=== PATIENT | female | born 1930 ===

== ENCOUNTER 2018-07-14 13:31 | Inpatient (IN) | payer MEDICARE, MEDICAID ==
[2018-07-14 13:58] VITALS: BMI 27.3
[2018-07-14] MEDS ORDERED: oxyCODONE 5 mg Immediate Release Tab PO STA (14:13)
--- NOTE | 2018-07-14 14:39 | ED PDOC ---
Arrival/HPI - General Chief Complaint: Lower Extremity Problem/Injury Time Seen by Provider: 07/14/18 14:00 Historian: Patient - History of Present Illness Narrative History of Present Illness (Text): 07/14/18 14:22 A 88 year old female, whose past medical history includes diabetes, presents to the emergency department complaining of lower leg bilateral pain for the past 3 days. As per daughter patient sustained fall while walking on stairs, she fell 3 weeks ago and sustained minor injury to her knees. Patient denies any other complaints at this time including no chest pain or dyspnea. States she took Tylenol for the leg pain but had no relief. electrical and radio mechanic used, daughter, with patient's permission, official slovenian intepreter offered. No PMD. 07/15/18 11:12 Past Medical History - Provider Review Nursing Documentation Reviewed: Yes - Infectious Disease Hx of Infectious Diseases: None - Tetanus Immunization Tetanus Immunization: Unknown - Cardiac Hx Congestive Heart Failure: Yes Hx Pacemaker: No - Pulmonary Hx Respiratory Disorders: Yes Hx Asthma: Yes Hx Chronic Obstructive Pulmonary Disease (COPD): Yes Hx Emphysema: Yes Hx Pneumonia: Yes - Neurological Hx Paralysis: No - HEENT Hx HEENT Disorder: Yes Hx Cataracts: Yes Hx Deafness: Yes ([place]) - Renal Hx Renal Disorder: No - Endocrine/Metabolic Hx Endocrine Disorders: Yes Hx Diabetes Mellitus Type 1: Yes - Hematological/Oncological Hx Blood Transfusions: No Hx Blood Transfusion Reaction: No - Integumentary Hx Dermatological Disorder: Yes (RED RASH TO MID CHEST APPLIED TIGER BALM) - Musculoskeletal/Rheumatological Hx Musculoskeletal Disorders: Yes Hx Falls: Yes Hx Fractures: Yes (RIB FRACTURE) - Gastrointestinal Hx Gastrointestinal Disorders: Yes Hx Gall Bladder Disease: Yes (CHOLECYSTECTOMY) Other/Comment: MELENA - Genitourinary/Gynecological Hx Genitourinary Disorders: No - Psychiatric Hx Psychophysiologic Disorder: Yes Hx Depression: Yes Hx Substance Use: No - Surgical History Hx Cholecystectomy: Yes Hx Coronary Stent: Yes - Anesthesia Hx Anesthesia: Yes Hx Anesthesia Reactions: No Hx Malignant Hyperthermia: No - Suicidal Assessment Feels Threatened In Home Enviroment: No Family/Social History - Physician Review Nursing Documentation Reviewed: Yes Family/Social History: No Known Family HX Smoking Status: Never Smoked Hx Alcohol Use: No Hx Substance Use: No Hx Substance Use Treatment: No Allergies/Home Meds Allergies/Adverse Reactions: Allergies losartan Allergy (Verified 07/14/18 13:54) COUGH Home Medications: Home Meds Medication Instructions Recorded Confirmed ALPRAZolam [Xanax] 0.25 mg PO BID PRN 05/09/17 05/25/17 Aspirin [Adult Low Dose Aspirin EC] 81 mg PO DAILY 05/09/17 07/14/18 Clopidogrel [Plavix] 75 mg PO DAILY 05/09/17 07/14/18 Furosemide [Lasix] 20 mg PO BID 05/09/17 07/14/18 Montelukast [Singulair] 10 mg PO DAILY 05/09/17 07/14/18 RX: Metoprolol Tartrate 25 mg PO BID 05/09/17 07/14/18 Albuterol HFA [Ventolin HFA 90 2 puff IH [id number] 05/25/17 mcg/actuation (8 g)] Albuterol/Ipratropium [Duoneb 3 1 puff INH QID PRN 05/25/17 07/14/18 MG/3 Ml-0.5 MG/3 Ml 3 Ml] Famotidine [Pepcid] 20 mg PO DAILY 05/25/17 07/14/18 Fluticasone/Salmeterol 500/50 1 puff INH BID 05/25/17 07/14/18 [Advair Diskus 500/50] Insulin Degludec [Tresiba 0 units SQ DAILY 05/25/17 07/14/18 Flextouch U-100] Isosorbide Mononitrate [Isosorbide 30 mg PO DAILY 05/25/17 07/14/18 Mononitrate ER] RX: Fenofibrate [Tricor] 48 mg PO DAILY 05/25/17 07/14/18 SITagliptin [Januvia] 100 mg PO DAILY 05/25/17 07/14/18 Tiotropium [place] [Spiriva 2 puff INH DAILY 05/25/17 07/14/18 Respimat] Review of Systems - Physician Review All systems were reviewed & negative as marked: Yes - Review of Systems Constitutional: absent: Fevers Musculoskeletal: Back Pain (lowre back pain, though not experiening it at this time according to patient.), Other (bilateral leg pain) Physical Exam - Physical Exam Narrative Physical Exam (Text): Gen: VS reviewed, alert, well developed, well nourished, nontoxic, mild distress Eye: EOMI, PERRL Neck: no JVD, supple, no adenopathy CV: regular rate, regular rhythm, no rubs,no murmur, S1, S2 Pulm: no distress, clear to auscultation, no wheeze, no rhonchi, breath sounds equal, no rales Abd: soft, nontender, no guarding, no rebound, no rigidity Ext: no edema, bilateral lower legs varicosis veins, unusual pain to superficial touch Skin: good color, no rash, no cyanosis Psych: responds appropriately to questions, normal affect Neuro: oriented x3, CN2-12 intact grossly, motor intact, sensation intact Vital Signs Reviewed: Yes Vital Signs Temp Pulse Resp BP Pulse Ox 07/14/18 13:31 98 F 75 18 145/85 98 Temperature: Afebrile Blood Pressure: Normal Pulse: Regular Respiratory Rate: Normal Appearance: Positive for: Well-Appearing, Non-Toxic, Comfortable Pain Distress: None Mental Status: Positive for: Alert and Oriented X 3 Medical Decision Making ED Course and Treatment: 07/14/18 14:25 Impression: 88 year old female with lower leg bilateral pain. Plan: -- Lumbar Spinal CT -- Labs -- Lower Extremity Ultrasound -- Percocet -- Reassess and disposition Progress Notes: 07/14/18 16:51 Ultrasound reveals patient has bilateral DVTs. 07/14/18 17:13 patient seen for bilaterally lower leg pain with difficulty ambulating. patient does not have cardiopulmonary symptoms during Emergency department course. patient found to have multiple vessel lower extremity DVT. patient at this time is an ambulatory risk being that she had a mechanical fall within this same time frame. i feel that empirically started this patient on noac therapy for lower extremity dvt could be potentially harmful to the patient with the risk for head injury with subsequent falls. patient would benefit from physical therapy. has bled score =2. i feel it is still prudent to empirically anticoagulate being that that the patient has symptomatic DVT in bilateral lower extremities. admit accepted by dr. shelton. 07/14/18 17:35 - Lab Interpretations I have reviewed the lab results: Yes - RAD Interpretation Narrative RAD Interpretations (Text): 07/14/2018 15:[address] Findings: Multilevel degenerative changes including anterior osteophyte formation. Osseous demineralization. Vertebral body heights appear within normal limits. Alignment appears satisfactory. No acute fracture or subluxation identified. Paraspinal soft tissues appear unremarkable. Limited visualization of the intra- abdominal and intrapelvic contents appear unremarkable. Impression: No acute fracture or subluxation identified. Osseous demineralization. Degenerative changes. Suggest further evaluation with MRI if indicated. Dictator: Tayla Moncada MD Radiology Orders: 07/14/18 14:12 LUMBAR SPINE W/O CONTRAST [CT] Stat 07/14/18 14:13 DUPLEX LOWER EXTRM VEIN BILAT [US] Stat - Medication Orders Current Medication Orders: Discontinued Medications Oxycodone HCl (Oxycodone Immediate Release Tab) 2.5 mg PO STAT STA Stop: 07/14/18 14:14 - Scribe Statement The provider has reviewed the documentation as recorded by the Farzaneh Grider Provider Scribe Attestation: All medical record entries made by the Scribe were at my direction and personally dictated by me. I have reviewed the chart and agree that the record accurately reflects my personal performance of the history, physical exam, medical decision making, and the department course for this patient. I have also personally directed, reviewed, and agree with the discharge instructions and disposition. Disposition/Present on Arrival - Present on Arrival Any Indicators Present on Arrival: No History of DVT/PE: No History of Uncontrolled Diabetes: Yes Urinary Catheter: No History of Decub. Ulcer: No History Surgical Site Infection Following: None - Disposition Have Diagnosis and Disposition been Completed?: Yes Diagnosis: DVT of lower extremity, bilateral Disposition: HOSPITALIZED Disposition Time: 17:23 Patient Plan: Admission Patient Problems: Current Active Problems Problem Status Onset DVT of lower extremity, bilateral Acute Condition: STABLE
[2018-07-14 15:34] LABS: BASO # 0.02 K/mm3 (0.0-2.0); BASO % 0.2 % (0.0-3.0); EOS # 0.1 (0.0-0.7); EOS % 1.1 % (1.5-5.0); GRAN # 4.54 (1.4-6.5); GRAN % 55.4 % (50.0-68.0); LYMPH # 2.9 (1.2-3.4); LYMPH % 35.7 % (22.0-35.0); MEAN CELL VOLUME 78.5 fl (80.0-105.0); MEAN CORPUSCULAR HEMOGLOBIN 25.9 pg (25.0-35.0); MEAN PLATELET VOLUME 10.4 fl (7.0-11.0); MONO # 0.6 (0.1-0.6); MONO % 7.6 % (1.0-6.0); RBC 5.4 10^6/uL (3.5-6.1); RED CELL DISTRIBUTION WIDTH 14.3 % (11.5-14.5); WHITE BLOOD COUNT 8.2 10^3/uL (4.5-11.0)
[2018-07-14 15:58] LABS: BLOOD UREA NITROGEN 16 mg/dL (7-21); CALCIUM 9.5 mg/dL (8.4-10.5); GFR NON-AFRICAN AMERICAN > 60
--- NOTE | 2018-07-14 16:00 | CT ---
Date of service: 07/14/2018 CT lumbar spine without IV contrast Indication: pain, stenosis Comparison: None available Technique: Noncontrast axial images of the lumbar spine were provided. Sagittal and coronal reformatted images were generated and reviewed. This CT exam was performed using 1 or more of the following dose reduction techniques: Automated exposure control, adjustment of the MAA and/or kV according to patient size, and/or use of iterative reconstruction technique. Total exam DLP: 1422.35 MGy-cm Findings: Multilevel degenerative changes including anterior osteophyte formation. Osseous demineralization. Vertebral body heights appear within normal limits. Alignment appears satisfactory. No acute fracture or subluxation identified. Paraspinal soft tissues appear unremarkable. Limited visualization of the intra-abdominal and intrapelvic contents appear unremarkable. Impression: No acute fracture or subluxation identified. Osseous demineralization. Degenerative changes. Suggest further evaluation with MRI if indicated.
[2018-07-14] MEDS ORDERED: Oxycodone/Acetaminophen 5/325 mg Tab PO STA (16:59)
[2018-07-14 17:17] LABS: INR 1.05; PARTIAL THROMBOPLASTIN TIME 29.4 Seconds (25.1-36.5)
[2018-07-14] MEDS ORDERED: Heparin25000 units/250ml 1/2NS 25,000 UNITS/250 ML BAG IV PRN (17:30)
[2018-07-14 18:11] LABS: TROPONIN I 0.04 ng/mL
--- NOTE | 2018-07-14 19:48 | CP.PCM.HP ---
<Vanessa Chavez - Last Filed: 07/14/18 20:22> History of Present Illness - History of Present Illness History of Present Illness: Pt is a 88 year old female with pmhx of DM, HTN, CAD, HLD and asthma who presents to the ED for lower leg bilateral pain for the past 3 days. Patient is translated by a sales project administrator ID# [id number]. Pt reports that she fell 2 weeks ago but didnt go to a hospital for it because it didnt hurt her too badly. She states that recently over the past 3 days the pain has been progressively getting worse and is now rated an 8/10 in both legs though the L hurts worse than the R. Then she states that over the next 2 weeks she kept going to a senior center where they would help her exercise but over the past 2 weeks she would do all the activities and exercises while sitting. Pt denies ever having an episode like this in the past. She denies recent travel. Pt is currently denying fevers, chills, headache, weakness, SOB, SOB w exertion, cough, Chest pain, pleuritic chest pain, palpitations, abd pain, n/v, c/d, dysuria, hematuria, numbness, tingling or weakness in any extremity. Pt does admit to calf pain b/l. Pmhx: DM, HTN, CAD, HLD and asthma Pshx: Denies All: Losartan - cough Fam: Non-contributory Soc: Denies smoking, denies tobacco use, and denies any illicit drug use PMD: Gerald Wrapper Dipper: Amalia Present on Admission - Present on Admission Any Indicators Present on Admission: No Past Patient History - Infectious Disease Hx of Infectious Diseases: None - Tetanus Immunizations Tetanus Immunization: Unknown - Past Social History Smoking Status: Never Smoked - CARDIAC Hx Congestive Heart Failure: Yes Hx Pacemaker: No - PULMONARY Hx Respiratory Disorders: Yes Hx Asthma: Yes Hx Chronic Obstructive Pulmonary Disease (COPD): Yes Hx Emphysema: Yes Hx Pneumonia: Yes - NEUROLOGICAL Hx Paralysis: No - HEENT Hx HEENT Problems: Yes Hx Cataracts: Yes Hx Deafness: Yes ([place]) - RENAL Hx Chronic Kidney Disease: No - ENDOCRINE/METABOLIC Hx Endocrine Disorders: Yes Hx Diabetes Mellitus Type 1: Yes - HEMATOLOGICAL/ONCOLOGICAL Hx Blood Transfusions: No Hx Blood Transfusion Reaction: No - INTEGUMENTARY Hx Dermatological Problems: Yes (RED RASH TO MID CHEST APPLIED TIGER BALM) - MUSCULOSKELETAL/RHEUMATOLOGICAL Hx Musculoskeletal Disorders: Yes Hx Falls: Yes Hx Fractures: Yes (RIB FRACTURE) - GASTROINTESTINAL Hx Gastrointestinal Disorders: Yes Hx Gall Bladder Disease: Yes (CHOLECYSTECTOMY) Other/Comment: MELE[place] - GENITOURINARY/GYNECOLOGICAL Hx Genitourinary Disorders: No - PSYCHIATRIC Hx Psychophysiologic Disorder: Yes Hx Depression: Yes Hx Substance Use: No - SURGICAL HISTORY Hx Cholecystectomy: Yes Hx Coronary Stent: Yes - ANESTHESIA Hx Anesthesia: Yes Hx Anesthesia Reactions: No Hx Malignant Hyperthermia: No Meds Allergies/Adverse Reactions: Allergies Allergy/AdvReac Type Severity Reaction Status Date / Time losartan Allergy COUGH Verified 07/14/18 13:54 Physical Exam - Constitutional Appears: Well, Non-toxic, No Acute Distress - Head Exam Head Exam: ATRAUMATIC, NORMAL INSPECTION, NORMOCEPHALIC - Eye Exam Eye Exam: EOMI, Normal appearance, PERRL - Respiratory Exam Respiratory Exam: Clear to Auscultation Bilateral, NORMAL BREATHING PATTERN. absent: Accessory Muscle Use, Decreased Breath Sounds, Rales, Rhonchi, Wheezes, Respiratory Distress, Stridor - Cardiovascular Exam Cardiovascular Exam: RRR, +S1, +S2. absent: Gallop, Rubs, Systolic Murmur - GI/Abdominal Exam GI & Abdominal Exam: Normal Bowel Sounds, Soft. absent: Firm, Hernia, Tenderness - Extremities Exam Extremities exam: Positive for: calf tenderness, pedal edema (present b/l), tenderness, pedal pulses present. Negative for: joint swelling - Back Exam Back exam: NORMAL INSPECTION. absent: CVA tenderness (L), CVA tenderness (R) - Neurological Exam Neurological exam: Alert, Oriented x3 - Psychiatric Exam Psychiatric exam: Normal Affect, Normal Mood - Skin Skin Exam: Dry, Intact, Normal Color, Warm Results - Vital Signs Recent Vital Signs: Last Vital Signs Temp 98 F 07/14/18 17:10 Pulse 72 07/14/18 17:10 Resp 18 07/14/18 17:10 BP 124/70 07/14/18 17:10 Pulse Ox 98 07/14/18 17:10 - Labs Result Diagrams: 07/14/18 15:00 07/14/18 15:00 Labs: Laboratory Results - last 24 hr 07/14/18 07/14/18 07/14/18 15:00 15:00 17:04 WBC 8.2 RBC 5.40 Hgb 14.0 Hct 42.4 MCV 78.5 L MCH 25.9 MCHC 33.0 RDW 14.3 Plt Count 238 MPV 10.4 Gran % 55.4 Lymph % (Auto) 35.7 H Grand % (Auto) 7.6 H Eos % (Auto) 1.1 L Baso % (Auto) 0.2 Gran # 4.54 Lymph # (Auto) 2.9 Grand # (Auto) 0.6 Eos # (Auto) 0.1 Baso # (Auto) 0.02 PT 12.0 INR 1.05 APTT 29.4 Sodium 138 Potassium 4.6 Chloride 104 Carbon Dioxide 25 Anion Gap 13 BUN 16 Creatinine 0.6 L Est GFR ( Amer) > 60 Est GFR (Non-Af Amer) > 60 Random Glucose 112 H Calcium 9.5 Phosphorus Magnesium Troponin I 07/14/18 17:30 WBC RBC Hgb Hct MCV MCH MCHC RDW Plt Count MPV Gran % Lymph % (Auto) Grand % (Auto) Eos % (Auto) Baso % (Auto) Gran # Lymph # (Auto) Grand # (Auto) Eos # (Auto) Baso # (Auto) PT INR APTT Sodium Potassium Chloride Carbon Dioxide Anion Gap BUN Creatinine Est GFR ( Amer) Est GFR (Non-Af Amer) Random Glucose Calcium Phosphorus 4.1 Magnesium 1.9 Troponin I 0.04 Assessment & Plan - Assessment and Plan (Free Text) Assessment: Pt is a 88 year old female with pmhx of DM, HTN, CAD, HLD and asthma who present s to the ED for lower leg bilateral pain for the past 3 days. Doppler U/S of LE b/l was + for DVTs in both legs. Plan: B/L DVTs: - Likely 2/2 immobilization from fall - Pt is not having any pleuritic cp, breathing comfortably on room air and HR is not tachycardic. - U/S Dopplers are + for DVTs in both legs f/u official read - Started on Heparin Drip - cont home med ASA 81mg - Unsure if pt takes plavix at home, family unsure about plavix use and pharmacy contacted x 2 with no response - will continue to monitor CAD s/p stent: - Last echo 05/14 - EF: 60-65%, mild pulm HTN - Last stress test done 05/14 - per cardio: "probably normal SPECT perfusion study" - Per family pt had stent placed 5 years ago - Unsure whether pt is continuing to take plavix, and other home meds will confirm with pharmacy tomorrow - On ASA and heparin drip Hx of DM: - ISS - Medium - f/u A1c Hx of Asthma: - Duonebs Q6 PRN - Pt noted to be on multiple inhalers as of now breathing comfortably on room air, will confirm with pharmacy the home meds. HTN: - Cont home metoprolol - Will monitor PPX: DVT: Heparin Drip GI: Pepcid <[id number] - Last Filed: 07/15/18 13:35> Results - Vital Signs Recent Vital Signs: Last Vital Signs Temp 98.3 F 07/15/18 06:44 Pulse 69 07/15/18 06:44 Resp 20 07/15/18 06:44 BP 180/78 H 07/15/18 06:44 Pulse Ox 96 07/15/18 06:44 - Labs Result Diagrams: 07/15/18 07:00 07/15/18 07:00 Labs: Laboratory Results - last 24 hr 07/14/18 07/14/18 07/14/18 15:00 15:00 17:04 WBC 8.2 RBC 5.40 Hgb 14.0 Hct 42.4 MCV 78.5 L MCH 25.9 MCHC 33.0 RDW 14.3 Plt Count 238 MPV 10.4 Gran % 55.4 Lymph % (Auto) 35.7 H Grand % (Auto) 7.6 H Eos % (Auto) 1.1 L Baso % (Auto) 0.2 Gran # 4.54 Lymph # (Auto) 2.9 Grand # (Auto) 0.6 Eos # (Auto) 0.1 Baso # (Auto) 0.02 PT 12.0 INR 1.05 APTT 29.4 Sodium 138 Potassium 4.6 Chloride 104 Carbon Dioxide 25 Anion Gap 13 BUN 16 Creatinine 0.6 L Est GFR ( Amer) > 60 Est GFR (Non-Af Amer) > 60 POC Glucose (mg/dL) Random Glucose 112 H Calcium 9.5 Phosphorus Magnesium Total Bilirubin AST ALT Alkaline Phosphatase Troponin I Total Protein Albumin Globulin Albumin/Globulin Ratio 07/14/18 07/14/18 07/14/18 17:30 23:07 23:15 WBC RBC Hgb Hct MCV MCH MCHC RDW Plt Count MPV Gran % Lymph % (Auto) Grand % (Auto) Eos % (Auto) Baso % (Auto) Gran # Lymph # (Auto) Grand # (Auto) Eos # (Auto) Baso # (Auto) PT 12.8 H INR 1.12 APTT 250.5 H* Sodium Potassium Chloride Carbon Dioxide Anion Gap BUN Creatinine Est GFR ( Amer) Est GFR (Non-Af Amer) POC Glucose (mg/dL) 177 H Random Glucose Calcium Phosphorus 4.1 Magnesium 1.9 Total Bilirubin AST ALT Alkaline Phosphatase Troponin I 0.04 Total Protein Albumin Globulin Albumin/Globulin Ratio 07/15/18 07/15/18 07/15/18 06:25 07:00 07:00 WBC 7.3 RBC 5.15 Hgb 13.3 Hct 40.6 MCV 78.8 L MCH 25.8 MCHC 32.8 RDW 14.0 Plt Count 198 MPV 10.1 Gran % 49.2 L Lymph % (Auto) 39.9 H Grand % (Auto) 8.3 H Eos % (Auto) 2.5 Baso % (Auto) 0.1 Gran # 3.57 Lymph # (Auto) 2.9 Grand # (Auto) 0.6 Eos # (Auto) 0.2 Baso # (Auto) 0.01 PT INR APTT Sodium 138 Potassium 4.0 Chloride 105 Carbon Dioxide 25 Anion Gap 11 BUN 11 Creatinine 0.5 L Est GFR ( Amer) > 60 Est GFR (Non-Af Amer) > 60 POC Glucose (mg/dL) 90 Random Glucose 109 Calcium 9.1 Phosphorus Magnesium Total Bilirubin 0.7 AST 40 H ALT 32 Alkaline Phosphatase 86 Troponin I Total Protein 7.0 Albumin 3.5 Globulin 3.4 Albumin/Globulin Ratio 1.0 L 07/15/18 07/15/18 07:00 11:26 WBC RBC Hgb Hct MCV MCH MCHC RDW Plt Count MPV Gran % Lymph % (Auto) Grand % (Auto) Eos % (Auto) Baso % (Auto) Gran # Lymph # (Auto) Grand # (Auto) Eos # (Auto) Baso # (Auto) PT 12.9 H INR 1.12 APTT 159.0 H* Sodium Potassium Chloride Carbon Dioxide Anion Gap BUN Creatinine Est GFR ( Amer) Est GFR (Non-Af Amer) POC Glucose (mg/dL) 147 H Random Glucose Calcium Phosphorus Magnesium Total Bilirubin AST ALT Alkaline Phosphatase Troponin I Total Protein Albumin Globulin Albumin/Globulin Ratio Attending/Attestation - Attestation I have personally seen and examined this patient.: Yes I have fully participated in the care of the patient.: Yes I have reviewed all pertinent clinical information: Yes Notes (Text): 07/15/18 13:28 Medical record note made by the resident after discussion with my direction and input after the patient was personally seen and examined by me. I have reviewed the chart and agree that the record accurately reflects by personal performance of the history, physical exam, data review, and medical decision-making, in the course for the patient. I have also personally directed the plan of care. 88 year old female with pmhx of DM, HTN, CAD, HLD and asthma was admitted with bilateral leg pain ,found to have bilateral legs DVT involving right and Left Po pliteal veins and left common Peroneal Vein. Etiology is likely due to decrease mobility.Patient is unable to walk . At this time we will continue IV heparin.We will switch to Apixiban in 24 hour. Patient is on ASA/Plavix, unable to give any recent cardiac stent history.We will try to get more information from patient PCP and family as one of the antiplatelet medication will need to be discontinued as patient will be on oral anticoagulation for 3-6 month for the treatment of DVT to decrease the risk of bleeding.Patient will also need physical therapy evaluation prior to discharge as she is unable to ambulate due to pain. Management plan was discussed in detail with patient. She need reinforcement. Education was provided. 07/15/18 13:30
[2018-07-14] MEDS ORDERED: Oxycodone/Acetaminophen 2.5/325 mg Tab PO STA (21:19)
[2018-07-14] MEDS: Albuterol-Ipratrop 3 mg / 0.5 (3 ml) UD IH SCH (21:45)
[2018-07-14] MEDS: Insulin Lispro (humaLOG) MEDIUM Coverage SC SCH (23:29)
[2018-07-14 23:42] LABS: INR 1.12; PROTHROMBIN TIME 12.8 SECONDS (9.4-12.5)
[2018-07-14 23:58] LABS: PARTIAL THROMBOPLASTIN TIME 250.5 Seconds (25.1-36.5)
[2018-07-15] MEDS ORDERED: Oxycodone/Acetaminophen 5/325 mg Tab PO ONE (01:05)
[2018-07-15] MEDS: Albuterol-Ipratrop 3 mg / 0.5 (3 ml) UD IH SCH ×4 (02:11→21:05)
[2018-07-15 07:25] LABS: BASO # 0.01 K/mm3 (0.0-2.0); BASO % 0.1 % (0.0-3.0); EOS # 0.2 (0.0-0.7); EOS % 2.5 % (1.5-5.0); GRAN # 3.57 (1.4-6.5); GRAN % 49.2 % (50.0-68.0); HEMOGLOBIN 13.3 g/dL (12.0-16.0); LYMPH # 2.9 (1.2-3.4); LYMPH % 39.9 % (22.0-35.0); MEAN CELL VOLUME 78.8 fl (80.0-105.0); MEAN CORPUSCULAR HEMOGLOBIN 25.8 pg (25.0-35.0); MEAN CORPUSCULAR HGB CONC 32.8 g/dl (31.0-37.0); MEAN PLATELET VOLUME 10.1 fl (7.0-11.0); MONO # 0.6 (0.1-0.6); MONO % 8.3 % (1.0-6.0); RBC 5.15 10^6/uL (3.5-6.1); WHITE BLOOD COUNT 7.3 10^3/uL (4.5-11.0)
[2018-07-15 07:42] LABS: ALBUMIN 3.5 g/dL (3.0-4.8); ALT/SGPT 32 U/L (7-56); AST/SGOT 40 U/L (14-36); BLOOD UREA NITROGEN 11 mg/dL (7-21); CALCIUM 9.1 mg/dL (8.4-10.5); GFR NON-AFRICAN AMERICAN > 60
[2018-07-15 07:55] LABS: INR 1.12; PROTHROMBIN TIME 12.9 SECONDS (9.4-12.5)
[2018-07-15] MEDS: Insulin Lispro (humaLOG) MEDIUM Coverage SC SCH ×4 (09:02→22:44)
--- NOTE | 2018-07-15 14:59 | CP.PCM.PN ---
<Vanessa Chavez - Last Filed: 07/15/18 16:20> Subjective - Date & Time of Evaluation Date of Evaluation: 07/15/18 Time of Evaluation: 14:54 - Subjective Subjective: Vanessa Chavez DO, PGY-1 Medical Progress Note for Dr. Guerrero: Pt was seen and examined this morning at bedside. Pt states that she is still having pain and was given pain medication overnight to help alleviate it. She denies any other acute overnight events. She states that the pain is better than what it was last night but is still an 8/10 in intensity and is located from the knee down on both side. She states that today the pain is on the front side of the leg. She denies any fevers, chills, headache, weakness, dizziness, SOB, SOB w/ exertion, cough, chest pain, pleuritic chest pain, palpitations, abd pain, n/v, c/d, dysuria, frequency, numbness or tingling in the LE. She denies any other acute complaints at this time. Objective - Vital Signs/Intake and Output Vital Signs (last 24 hours): Temp Pulse Resp BP Pulse Ox 98.3 F 69 20 180/78 H 96 07/15/18 06:44 07/15/18 06:44 07/15/18 06:44 07/15/18 06:44 07/15/18 06:44 Intake and Output: 07/15/18 07/15/18 06:59 18:59 Intake Total 0 Balance 0 - Medications Medications: Current Medications Acetaminophen (Tylenol 325mg Tab) 650 mg PO Q6H PRN PRN Reason: Pain, moderate (4-7) Last Admin: 07/15/18 09:09 Dose: 650 mg Albuterol/Ipratropium (Duoneb 3 Mg/0.5 Mg (3 Ml) Ud) 3 ml IH [id number] [facility] Last Admin: 07/15/18 13:29 Dose: 3 ml Apixaban (Eliquis) 10 mg PO Q12 [facility]; Protocol Last Admin: 07/15/18 10:30 Dose: 10 mg Aspirin (Ecotrin) 81 mg PO DAILY [facility] Last Admin: 07/15/18 09:11 Dose: 81 mg Famotidine (Pepcid) 20 mg PO DAILY [facility] Last Admin: 07/15/18 09:10 Dose: 20 mg Fenofibrate (Tricor) 48 mg PO DAILY [facility] Last Admin: 07/15/18 11:00 Dose: 48 mg Insulin Human Lispro (Humalog Med) [address] [facility]; Protocol Last Admin: 07/15/18 12:04 Dose: Not Given Metoprolol Tartrate (Lopressor) 25 mg PO BID [facility] Last Admin: 07/15/18 11:16 Dose: Not Given - Labs Labs: 07/15/18 07:00 07/15/18 07:00 PT 12.9 SECONDS (9.4-12.5) H 07/15/18 07:00 INR 1.12 07/15/18 07:00 APTT 159.0 Seconds (25.1-36.5) H* 07/15/18 07:00 - Constitutional Appears: Well, Non-toxic, No Acute Distress - Head Exam Head Exam: ATRAUMATIC, NORMAL INSPECTION, NORMOCEPHALIC - Eye Exam Eye Exam: EOMI, Normal appearance, PERRL - Respiratory Exam Respiratory Exam: Clear to Ausculation Bilateral, NORMAL BREATHING PATTERN. absent: Accessory Muscle Use, Decreased Breath Sounds, Rales, Rhonchi, Wheezes, Respiratory Distress, Stridor - Cardiovascular Exam Cardiovascular Exam: RRR, +S1, +S2. absent: Gallop, Rubs, +S4 - GI/Abdominal Exam GI & Abdominal Exam: Soft, Normal Bowel Sounds. absent: Guarding, Rigid, Tenderness - Extremities Exam Extremities Exam: Calf Tenderness, Pedal Edema (present b/l), Tenderness (present below the knee, present both anteriorly and posteriorly) - Back Exam Back Exam: NORMAL INSPECTION. absent: CVA tenderness (L), CVA tenderness (R) - Neurological Exam Neurological Exam: Alert, Awake, Oriented x3. absent: Motor Sensory Deficit - Psychiatric Exam Psychiatric exam: Normal Affect, Normal Mood - Skin Skin Exam: Dry, Intact, Normal Color, Warm Assessment and Plan - Assessment and Plan (Free Text) Assessment: Pt is a 88 year old female with pmhx of DM, HTN, CAD, HLD and asthma who presents to the ED for lower leg bilateral pain for the past 3 days. Doppler U/S of LE b/l was + for DVTs in both legs. Will transition the pt off of heparin and will start eliquis. Plan: B/L 1st time Provoked DVTs: - Likely 2/2 immobilization from fall - Pt is not having any pleuritic cp, breathing comfortably on room air and HR is not tachycardic, pain in legs improving. - U/S Dopplers are + for DVTs in both legs - prelim read shows in R and L popliteal veins and L common peroneal vein - Likely to be anticoagulated x3-6 months - Started on Heparin Drip, now transitioned to eliquis - cont home med ASA 81mg - Unsure if pt takes plavix at home, family unsure about plavix use and pharmacy contacted x 4 with no response - will continue to monitor - PT eval CAD s/p stent: - Last echo 05/14 - EF: 60-65%, mild pulm HTN - Last stress test done 05/14 - per cardio: "probably normal SPECT perfusion study" - Per family pt had stent placed 5 years ago - Spoke to cardiology, plavix ok to be d/catie with follow up in clinic upon d/c. - On ASA and eliquis Hx of DM: - ISS - Medium - f/u A1c Hx of Asthma: - Duonebs Q6 PRN - Pt noted to be on multiple inhalers as of now breathing comfortably on room air, will confirm with pharmacy the home meds. HTN: - Cont home metoprolol - Will monitor PPX: DVT: Heparin Drip GI: Pepcid Case seen and discussed with Dr. Cesar Chavez, DO Internal Medicine Resident PGY-1 <Sabina Guerrero - Last Filed: 07/17/18 15:28> Objective - Vital Signs/Intake and Output Vital Signs (last 24 hours): Temp Pulse Resp BP Pulse Ox 97.4 F L 62 18 124/66 97 07/16/18 14:00 07/16/18 17:21 07/16/18 14:00 07/16/18 17:21 07/16/18 14:00 - Labs Labs: 07/16/18 07:00 07/16/18 07:00 PT 18.8 SECONDS (9.4-12.5) H 07/16/18 08:50 INR 1.62 07/16/18 08:50 APTT 32.6 Seconds (25.1-36.5) 07/16/18 08:50 Attending/Attestation - Attestation I have personally seen and examined this patient.: Yes I have fully participated in the care of the patient.: Yes I have reviewed all pertinent clinical information, including history, physical exam and plan: Yes Notes (Text): 07/17/18 15:28 Medical record note made by the resident after discussion with my direction and input after the patient was personally seen and examined by me. I have reviewed the chart and agree that the record accurately reflects by personal performance of the history, physical exam, data review, and medical decision-making, in the course for the patient. I have also personally directed the plan of care.
[2018-07-15 15:29] VITALS: RESP 18
[2018-07-16] MEDS: Albuterol-Ipratrop 3 mg / 0.5 (3 ml) UD IH SCH ×3 (07:31→19:52)
[2018-07-16 07:32] LABS: BASO # 0.02 K/mm3 (0.0-2.0); BASO % 0.3 % (0.0-3.0); EOS # 0.2 (0.0-0.7); EOS % 2.6 % (1.5-5.0); GRAN # 3.94 (1.4-6.5); GRAN % 54.5 % (50.0-68.0); HEMOGLOBIN 13.3 g/dL (12.0-16.0); LYMPH # 2.5 (1.2-3.4); LYMPH % 34.3 % (22.0-35.0); MEAN CELL VOLUME 79.1 fl (80.0-105.0); MEAN CORPUSCULAR HGB CONC 32.8 g/dl (31.0-37.0); MEAN PLATELET VOLUME 10.1 fl (7.0-11.0); MONO # 0.6 (0.1-0.6); MONO % 8.3 % (1.0-6.0); RBC 5.12 10^6/uL (3.5-6.1); RED CELL DISTRIBUTION WIDTH 14.2 % (11.5-14.5); WHITE BLOOD COUNT 7.2 10^3/uL (4.5-11.0)
[2018-07-16 07:55] LABS: ALB/GLOB RATIO 1.1 (1.1-1.8); ALBUMIN 3.6 g/dL (3.0-4.8); ALT/SGPT 29 U/L (7-56); AST/SGOT 33 U/L (14-36); BLOOD UREA NITROGEN 18 mg/dL (7-21); CALCIUM 9.1 mg/dL (8.4-10.5); GFR NON-AFRICAN AMERICAN > 60
[2018-07-16] MEDS: Insulin Lispro (humaLOG) MEDIUM Coverage SC SCH ×3 (07:58→17:19)
[2018-07-16] MEDS ORDERED: Oxycodone/Acetaminophen 5/325 mg Tab PO ONE (09:15)
[2018-07-16 09:21] LABS: INR 1.62; PARTIAL THROMBOPLASTIN TIME 32.6 Seconds (25.1-36.5); PROTHROMBIN TIME 18.8 SECONDS (9.4-12.5)
[2018-07-16] MEDS ORDERED: Oxycodone/Acetaminophen 5/325 mg Tab PO PRN (11:16)
--- NOTE | 2018-07-16 17:16 | CP.PCM.DIS ---
<Christian Paige - Last Filed: 07/16/18 17:43> Provider - Provider Date of Admission: 07/14/18 17:24 Attending physician: Sabina Guerrero MD Time Spent in preparation of Discharge (in minutes): 45 Hospital Course - Lab Results Lab Results: Most Recent Lab Values WBC 7.2 10^3/uL (4.5-11.0) 07/16/18 07:00 RBC 5.12 10^6/uL (3.5-6.1) 07/16/18 07:00 Hgb 13.3 g/dL (12.0-16.0) 07/16/18 07:00 Hct 40.5 % (36.0-48.0) 07/16/18 07:00 MCV 79.1 fl (80.0-105.0) L 07/16/18 07:00 MCH 26.0 pg (25.0-35.0) 07/16/18 07:00 MCHC 32.8 g/dl (31.0-37.0) 07/16/18 07:00 RDW 14.2 % (11.5-14.5) 07/16/18 07:00 Plt Count 202 10^3/uL (120.0-450.0) 07/16/18 07:00 MPV 10.1 fl (7.0-11.0) 07/16/18 07:00 Gran % 54.5 % (50.0-68.0) 07/16/18 07:00 Lymph % (Auto) 34.3 % (22.0-35.0) 07/16/18 07:00 [place] % (Auto) 8.3 % (1.0-6.0) H 07/16/18 07:00 Eos % (Auto) 2.6 % (1.5-5.0) 07/16/18 07:00 Baso % (Auto) 0.3 % (0.0-3.0) 07/16/18 07:00 Gran # 3.94 (1.4-6.5) 07/16/18 07:00 Lymph # (Auto) 2.5 (1.2-3.4) 07/16/18 07:00 [place] # (Auto) 0.6 (0.1-0.6) 07/16/18 07:00 Eos # (Auto) 0.2 (0.0-0.7) 07/16/18 07:00 Baso # (Auto) 0.02 K/mm3 (0.0-2.0) 07/16/18 07:00 PT 18.8 SECONDS (9.4-12.5) H 07/16/18 08:50 INR 1.62 07/16/18 08:50 APTT 32.6 Seconds (25.1-36.5) 07/16/18 08:50 Sodium 139 mmol/L (132-148) 07/16/18 07:00 Potassium 4.4 mmol/L (3.6-5.0) 07/16/18 07:00 Chloride 108 mmol/L (98-107) H 07/16/18 07:00 Carbon Dioxide 25 mmol/L (21-33) 07/16/18 07:00 Anion Gap 11 (10-20) 07/16/18 07:00 BUN 18 mg/dL (7-21) 07/16/18 07:00 Creatinine 0.6 mg/dl (0.7-1.2) L 07/16/18 07:00 Est GFR ( Amer) > 60 07/16/18 07:00 Est GFR (Non-Af Amer) > 60 07/16/18 07:00 POC Glucose (mg/dL) 154 mg/dL (65-110) H 07/16/18 16:09 Random Glucose 148 mg/dL (70-110) H 07/16/18 07:00 Hemoglobin A1c 8.2 % (4.2-6.5) H D 07/15/18 07:00 Calcium 9.1 mg/dL (8.4-10.5) 07/16/18 07:00 Phosphorus 4.1 mg/dL (2.5-4.5) 07/14/18 17:30 Magnesium 1.9 mg/dL (1.7-2.2) 07/14/18 17:30 Total Bilirubin 0.8 mg/dL (0.2-1.3) 07/16/18 07:00 AST 33 U/L (14-36) 07/16/18 07:00 ALT 29 U/L (7-56) 07/16/18 07:00 Alkaline Phosphatase 77 U/L (38-126) 07/16/18 07:00 Troponin I 0.04 ng/mL 07/14/18 17:30 Total Protein 7.0 g/dL (5.8-8.3) 07/16/18 07:00 Albumin 3.6 g/dL (3.0-4.8) 07/16/18 07:00 Globulin 3.4 gm/dL 07/16/18 07:00 Albumin/Globulin Ratio 1.1 (1.1-1.8) 07/16/18 07:00 - Hospital Course Hospital Course: Upon Admission: Pt is a 88 year old female with pmhx of DM, HTN, CAD, HLD and asthma who presents to the ED for lower leg bilateral pain for the past 3 days. Patient is translated by a tool planer set up operator ID# [id number]. Pt reports that she fell 2 weeks ago but didnt go to a hospital for it because it didnt hurt her too badly. She states that recently over the past 3 days the pain has been progressively getting worse and is now rated an 8/10 in both legs though the L hurts worse than the R. Then she states that over the next 2 weeks she kept going to a senior center where they would help her exercise but over the past 2 weeks she would do all the activities and exercises while sitting. Pt denies ever having an episode like this in the past. She denies recent travel. Pt is currently denying fevers, chills, headache, weakness, SOB, SOB w exertion, cough, Chest pain, pleuritic chest pain, palpitations, abd pain, n/v, c/d, dysuria, hematuria, numbness, tingling or weakness in any extremity. Pt does admit to calf pain b/l. Hospital Course: Patients lower extremities were evaluated for DVT. She was found to have b/l DVT in popliteal veins and L common peroneal veins. She was intially started on heparin and eventually switched over to oral eliquis at 10mg. She was on plavix, however she had a stent around 5 years ago. She was unsure why she was still on plavix. She was given analgesics for pain control. She was continued on her home medications for DM, CAD, Asthma, HTN. Plavix was stopped upon discharge. Upon Discharge: Pt is doing well, ambulating, tolerating her diet, and resting comfortably. She still reports pain in legs that is alleviated with pain medications. She underwent PT, who deemed pt safe to be discharged home. Her vital signs are stable, she is hemodynamically stable. She has been taking her eliquis as scheduled. She will be discharged home with eliquis. She is present with her grandson who reports understanding of the importance of compliance of eliquis. She was given specific instructions on the dosage of eliquis to be take. She is to follow up with her PMD in 1 week. Discharge Exam - Head Exam Head Exam: ATRAUMATIC, NORMAL INSPECTION, NORMOCEPHALIC - Eye Exam Eye Exam: EOMI, Normal appearance, PERRL Pupil Exam: PERRL - ENT Exam ENT Exam: Mucous Membranes Moist - Neck Exam Neck exam: Normal Inspection - Respiratory Exam Respiratory Exam: NORMAL BREATHING PATTERN, UNREMARKABLE - Cardiovascular Exam Cardiovascular Exam: REGULAR RHYTHM, +S1, +S2 - GI/Abdominal Exam GI & Abdominal Exam: Normal Bowel Sounds, Unremarkable - Extremities Exam Extremities exam: calf tenderness, joint swelling, tenderness (anterior/posterior calf region), pedal pulses present - Back Exam Back exam: NORMAL INSPECTION - Neurological Exam Neurological exam: Alert, Oriented x3 - Psychiatric Exam Psychiatric exam: Normal Affect, Normal Mood - Skin Skin Exam: Dry, Intact, Warm Discharge Plan - Discharge Medications Prescriptions: Apixaban [Eliquis] 5 mg PO BID #28 tab Apixaban [Eliquis] 10 mg PO BID #20 tab RX: Gabapentin [Neurontin] 100 mg PO TID #15 cap RX: Lisinopril [Zestril] 10 mg PO DAILY #14 tab - Follow Up Plan Condition: STABLE Disposition: HOME/ ROUTINE Instructions: Heart Healthy Diet, Deep Vein Thrombosis (Blood Clots in the Legs) (DC), Bleeding Precautions, Oxycodone and Acetaminophen, How to Prevent Blood Clots, Going Home on Blood Thinners Additional Instructions: You have been started on a blood thinner called "Eliquis" 10mg twice daily on Monday for the DVT in your legs. You need to take this medication at 10mg for five more days. Then, starting next Monday, 07/22, you need to take Eliquis 5mg twice daily afterwards for at least 3 months. Follow up with your primary care doctor in 3-5 days after discharge for continual management of your deep vein thrombosis. Due to the bleeding risk, we have stopped your plavix since your cardiac stent was placed 5 years ago. You have been started on a new medication for high blood pressure, "lisinopril 10mg." Please take 1 tablet of this medication every day You have been started on a new medication called "gabapentin 100mg." Please take this medication for pain Continue aspirin 81mg daily and follow up with your sparker and patcher (heart doctor). You will be given a medicine called "percocet" for severe pain. Please take this only for severe pain. Please resume your home medications that you were taking previously, other than the plavix. Please follow up with you primary care doctor for further screening tests Please go to the nearest emergency room if your symptoms return. Referrals: Derrick Duarte MD [Family Provider] - <Sabina Guerrero - Last Filed: 07/17/18 15:27> Provider - Provider Date of Admission: 07/14/18 17:24 Attending physician: Sabina Guerrero MD Hospital Course - Lab Results Lab Results: Most Recent Lab Values WBC 7.2 10^3/uL (4.5-11.0) 07/16/18 07:00 RBC 5.12 10^6/uL (3.5-6.1) 07/16/18 07:00 Hgb 13.3 g/dL (12.0-16.0) 07/16/18 07:00 Hct 40.5 % (36.0-48.0) 07/16/18 07:00 MCV 79.1 fl (80.0-105.0) L 07/16/18 07:00 MCH 26.0 pg (25.0-35.0) 07/16/18 07:00 MCHC 32.8 g/dl (31.0-37.0) 07/16/18 07:00 RDW 14.2 % (11.5-14.5) 07/16/18 07:00 Plt Count 202 10^3/uL (120.0-450.0) 07/16/18 07:00 MPV 10.1 fl (7.0-11.0) 07/16/18 07:00 Gran % 54.5 % (50.0-68.0) 07/16/18 07:00 Lymph % (Auto) 34.3 % (22.0-35.0) 07/16/18 07:00 [place] % (Auto) 8.3 % (1.0-6.0) H 07/16/18 07:00 Eos % (Auto) 2.6 % (1.5-5.0) 07/16/18 07:00 Baso % (Auto) 0.3 % (0.0-3.0) 07/16/18 07:00 Gran # 3.94 (1.4-6.5) 07/16/18 07:00 Lymph # (Auto) 2.5 (1.2-3.4) 07/16/18 07:00 [place] # (Auto) 0.6 (0.1-0.6) 07/16/18 07:00 Eos # (Auto) 0.2 (0.0-0.7) 07/16/18 07:00 Baso # (Auto) 0.02 K/mm3 (0.0-2.0) 07/16/18 07:00 PT 18.8 SECONDS (9.4-12.5) H 07/16/18 08:50 INR 1.62 07/16/18 08:50 APTT 32.6 Seconds (25.1-36.5) 07/16/18 08:50 Sodium 139 mmol/L (132-148) 07/16/18 07:00 Potassium 4.4 mmol/L (3.6-5.0) 07/16/18 07:00 Chloride 108 mmol/L (98-107) H 07/16/18 07:00 Carbon Dioxide 25 mmol/L (21-33) 07/16/18 07:00 Anion Gap 11 (10-20) 07/16/18 07:00 BUN 18 mg/dL (7-21) 07/16/18 07:00 Creatinine 0.6 mg/dl (0.7-1.2) L 07/16/18 07:00 Est GFR ( Amer) > 60 07/16/18 07:00 Est GFR (Non-Af Amer) > 60 07/16/18 07:00 POC Glucose (mg/dL) 154 mg/dL (65-110) H 07/16/18 16:09 Random Glucose 148 mg/dL (70-110) H 07/16/18 07:00 Hemoglobin A1c 8.2 % (4.2-6.5) H D 07/15/18 07:00 Calcium 9.1 mg/dL (8.4-10.5) 07/16/18 07:00 Phosphorus 4.1 mg/dL (2.5-4.5) 07/14/18 17:30 Magnesium 1.9 mg/dL (1.7-2.2) 07/14/18 17:30 Total Bilirubin 0.8 mg/dL (0.2-1.3) 07/16/18 07:00 AST 33 U/L (14-36) 07/16/18 07:00 ALT 29 U/L (7-56) 07/16/18 07:00 Alkaline Phosphatase 77 U/L (38-126) 07/16/18 07:00 Troponin I 0.04 ng/mL 07/14/18 17:30 Total Protein 7.0 g/dL (5.8-8.3) 07/16/18 07:00 Albumin 3.6 g/dL (3.0-4.8) 07/16/18 07:00 Globulin 3.4 gm/dL 07/16/18 07:00 Albumin/Globulin Ratio 1.1 (1.1-1.8) 07/16/18 07:00 Attending/Attestation - Attestation I have personally seen and examined this patient.: Yes I have fully participated in the care of the patient.: Yes I have reviewed all pertinent clinical information, including history, physical exam and plan: Yes Notes (Text): 07/17/18 15:24 Medical record note made by the resident after discussion with my direction and input after the patient was personally seen and examined by me. I have reviewed the chart and agree that the record accurately reflects by personal performance of the history, physical exam, data review, and medical decision-making, in the course for the patient. I have also personally directed the plan of care. 88 year old female with pmhx of DM, HTN, CAD, HLD and asthma was admitted with bilateral leg pain ,found to have bilateral legs DVT involving right and Left Popliteal veins and left common Peroneal Vein. Etiology is likely due to decrease mobility. Patient was initally treated with IV heparin which was later on switched to Apixiban. Patient was on ASA/Plavix, for CAD.Case was discussed with patient sparker and patcher and Plavix has been discontinued.Patient will continue Aspirin 81 mg po daily and Apixiban. risk and benefit of anticoagulation was discussed in detail with patient with the hep of tool planer set up operator. Patient was evaluated by Physical therapy and will be discharged home with home services. Patient will follow up with PCP and Cardiology. Management plan was discussed in detail with patient. She need reinforcement. Education was provided.
--- NOTE | 2018-07-16 20:16 | US ---
HISTORY: Leg pain and swelling. Evaluate for DVT PHYSICIAN(S): Yoan Varela MD. TECHNIQUE: Duplex sonography and color-flow Doppler with graded compression were used to evaluate the deep venous systems of both lower extremities. FINDINGS: There is occlusive thrombus noted in the left posterior tibial and peroneal veins. The left popliteal vein, femoral vein, and left common femoral vein are patent and compressible There may be partially occlusive thrombus in the right posterior tibial vein. The right popliteal vein, femoral vein, and common femoral vein are patent and compressible IMPRESSION: Left tibial DVT. Possible right tibial DVT
[2018-07-17 00:06] VITALS: BP 124/66; PULSE 62
[2018-07-17 00:30] VITALS: TEMP 97.4; O2SAT 97
== END 2018-07-16 20:58 | disposition home or self-care (01) | DRG 301 ==
LOC: ED 13:31 → ERH 17:24 → 5RSO 20:38
PROVIDERS: ADMIT Internal Medicine; ATTEND Internal Medicine
PROC: 3E0F7GC Introduction of Other Therapeutic Substance into Respiratory Tract, Via Natural or Artificial Opening (ICD-10-PCS; principal; 2018-07-15)
DX: I82.433 Acute embolism and thrombosis of popliteal vein, bilateral (principal); J44.9 Chronic obstructive pulmonary disease, unspecified; I25.10 Atherosclerotic heart disease of native coronary artery without angina pectoris; E10.9 Type 1 diabetes mellitus without complications; I10 Essential (primary) hypertension; E78.5 Hyperlipidemia, unspecified; Z91.81 History of falling; Z79.02 Long term (current) use of antithrombotics/antiplatelets; Z79.82 Long term (current) use of aspirin; Z95.5 Presence of coronary angioplasty implant and graft

== ENCOUNTER 2018-11-21 07:15 | Outpatient (CLI) | payer MEDICARE, MEDICAID | END 2018-11-21 07:16 | disposition home or self-care (01) | LOC: CARDIO 07:15 ==

== ENCOUNTER 2018-11-29 08:26 | Emergency (ER) | payer MEDICARE, MEDICAID ==
[2018-11-29 08:27] VITALS: BMI 29.2
[2018-11-29] MEDS ORDERED: TDAP Vaccine 0.5 mL Syr IM ONE (08:35)
[2018-11-29] MEDS ORDERED: Sodium Chloride 0.9% 1,000 ML IV SCH (08:45)
[2018-11-29 08:48] VITALS: RESP 18; TEMP 97.7
--- NOTE | 2018-11-29 09:02 | ED PDOC ---
Arrival/HPI - General Chief Complaint: Trauma Historian: Patient - History of Present Illness Narrative History of Present Illness (Text): 11/29/18 08:52 88F w/ h/o DM, HTN, CAD s/p stent, and HLD, presenting to the ED from home via EMS for medical evaluation s/p mechanical fall prior to arrival. Patient reportedly missed a step while walking down leading her to roll down 14 flights of stairs and sustain injury to the back of her head. Patient denies any loss of consciousness at the time. She was later helped by EMS and subsequently brought to the ER for medical evaluation. Patient notes hematoma to the back of her head, bilateral rib pain and bilateral lower extremity pain s/p fall. Patient reports associated mild chest discomfort but denies any other complaints. Patient denies any fevers, chills, headache, dizziness, shortness of breath, dys pnea on exertion, cough, diaphoresis, abdominal pain, nausea, vomiting, diarrhea, back pain, neck pain, or any other complaints. Patient reports compliance with all her medications this morning, including Xarelto and Aspirin. PMD: Dr. Duarte Time/Duration: Prior to Arrival Symptom Onset: Sudden Symptom Course: Unchanged Activities at Onset: Light Context: Home Past Medical History - Provider Review Nursing Documentation Reviewed: Yes - Infectious Disease Hx of Infectious Diseases: None - Tetanus Immunization Tetanus Immunization: Unknown - Reproductive Menopause: Yes - Cardiac Hx [place]: Yes Hx Hypertension: Yes - Pulmonary Hx Chronic Obstructive Pulmonary Disease (COPD): Yes - Neurological Hx Paralysis: No - HEENT Hx HEENT Disorder: Yes Hx Cataracts: Yes Hx Deafness: Yes ([place]) - Renal Hx Renal Disorder: No - Endocrine/Metabolic Hx Diabetes Mellitus Type 1: Yes - Hematological/Oncological Hx Blood Transfusions: No Hx Blood Transfusion Reaction: No - Integumentary Hx Dermatological Disorder: Yes (RED RASH TO MID CHEST APPLIED TIGER BALM) - Musculoskeletal/Rheumatological Hx Musculoskeletal Disorders: Yes Hx Falls: Yes Hx Fractures: Yes (RIB FRACTURE) - Gastrointestinal Hx Gastrointestinal Disorders: Yes Hx Gall Bladder Disease: Yes (CHOLECYSTECTOMY) Other/Comment: MELENA - Genitourinary/Gynecological Hx Genitourinary Disorders: No - Psychiatric Hx Psychophysiologic Disorder: Yes Hx Depression: Yes Hx Substance Use: No - Surgical History Hx Cholecystectomy: Yes Hx Coronary Stent: Yes - Anesthesia Hx Anesthesia: Yes Hx Anesthesia Reactions: No Hx Malignant Hyperthermia: No - Suicidal Assessment Feels Threatened In Home Enviroment: No Family/Social History - Physician Review Nursing Documentation Reviewed: Yes Family/Social History: No Known Family HX Smoking Status: Never Smoked Hx Alcohol Use: No Hx Substance Use: No Hx Substance Use Treatment: No Allergies/Home Meds Allergies/Adverse Reactions: Allergies No Known Allergies Allergy (Verified 11/29/18 08:30) Home Medications: Home Meds Medication Instructions Recorded Confirmed Aspirin [Adult Low Dose Aspirin EC] 81 mg PO DAILY 05/09/17 11/29/18 Metoprolol Tartrate 25 mg PO BID 05/09/17 11/29/18 Montelukast [Singulair] 10 mg PO DAILY 05/09/17 11/29/18 Insulin Degludec [Tresiba 30 units SQ DAILY 05/25/17 11/29/18 Flextouch U-100] Atorvastatin [Lipitor] 40 mg PO DAILY 11/21/18 11/29/18 Benzonatate 100 mg PO BID 11/21/18 11/29/18 Guaifenesin [Chest Congestion 400 mg PO TID 11/21/18 11/29/18 Relief] Pantoprazole Sodium [Protonix] 40 mg PO DAILY 11/21/18 11/29/18 Rivaroxaban [Xarelto] 20 mg PO DAILY 11/21/18 11/29/18 metFORMIN [glucOPHAGE] 500 mg PO QPM 11/21/18 11/29/18 Budesonide/Formoterol Fumarate 2 puff NEB Q6 PRN 11/29/18 11/29/18 [Symbicort 160-4.5 Mcg Inhaler] Fenofibrate [Tricor] 48 mg PO DAILY 11/29/18 11/29/18 Glimepiride [amaRYL] 2 mg PO BID 11/29/18 11/29/18 Isosorbide Mononitrate [Isosorbide 30 mg PO DAILY 11/29/18 11/29/18 Mononitrate ER] Lisinopril [Zestril] 2.5 mg PO DAILY 11/29/18 11/29/18 Review of Systems - Physician Review All systems were reviewed & negative as marked: Yes - Review of Systems Constitutional: Other (Hematoma to back of her head). absent: Fevers Eyes: absent: Vision Changes Respiratory: absent: SOB, Cough Cardiovascular: absent: Chest Pain Gastrointestinal: absent: Abdominal Pain, Diarrhea, Nausea, Vomiting Genitourinary Female: absent: Dysuria, Urine Output Changes Musculoskeletal: Other (Bilateral rib and bilateral lower extremity pain). absent: Back Pain, Neck Pain Skin: absent: Rash Neurological: absent: Headache, Dizziness Endocrine: absent: Diaphoresis Psychiatric: absent: Anxiety Physical Exam Vital Signs Reviewed: Yes Vital Signs Temp Pulse Resp BP Pulse Ox 11/29/18 08:27 97.7 F 71 18 121/53 L 97 Temperature: Afebrile Blood Pressure: Normal Pulse: Regular Respiratory Rate: Normal Appearance: Positive for: Well-Appearing, Non-Toxic, Comfortable Pain Distress: None Mental Status: Positive for: Alert and Oriented X 3 Finger Stick Blood Glucose: 217 - Systems Exam Head: Present: Normocephalic, Other (2 hematoma noted to occipital aspect of the head) Pupils: Present: PERRL Extroacular Muscles: Present: EOMI Conjunctiva: Present: Normal Mouth: Present: Moist Mucous Membranes Neck: Present: Normal Range of Motion. No: MIDLINE TENDERNESS Respiratory/Chest: Present: Clear to Auscultation, Good Air Exchange. No: Respiratory Distress, Accessory Muscle Use Cardiovascular: Present: Regular Rate and Rhythm, Normal S1, S2. No: Murmurs Abdomen: No: Tenderness, Distention, Peritoneal Signs Upper Extremity: Present: Other (Ecchymosis noted to dorsum aspect of right hand with some tenderness. Able to abduct and adduct all digits. Good motor mastic man bilaterally.) Lower Extremity: Present: Normal Inspection. No: Edema Neurological: Present: GCS=15, Speech Normal (Verbally answers questions in Panamanian) Skin: Present: Warm, Dry, Normal Color. No: Rashes Psychiatric: Present: Alert, Oriented x 3, Normal Insight, Normal Concentration Medical Decision Making ED Course and Treatment: 11/29/18 08:33 Impression: 88 year old female presents to the ED for medical evaluation s/p mechanical fall. Differential Diagnosis included but are not limited to: -- Intracranial hemorrhage -- Fracture Plan: -- CT of Cervical Spine -- CT of Head -- Labs -- EKG -- X-ray of bilateral hand -- X-ray of bilateral ribs -- IV fluids -- Tylenol -- Reassess and disposition Prior Visits: Notes and results from previous visits were reviewed. Progress Notes: - Lab Interpretations Lab Results: 11/29/18 09:06 11/29/18 09:06 Lab Results 11/29/18 09:06: Sodium 139, Potassium 4.2, Chloride 100, Carbon Dioxide 33, Anion Gap 10, BUN 17, Creatinine 0.7, Est GFR ( Amer) > 60, Est GFR (Non- Af Amer) > 60, Random Glucose 148 H, Calcium 9.3, Magnesium 1.6 L, Total Bilirubin 0.5, AST 29, ALT 31, Alkaline Phosphatase 115, Troponin I 0.03 D, NT-Pro-B Natriuret Pep 236, Total Protein 6.6, Albumin 3.8, Globulin 2.8, Albumin/Globulin Ratio 1.4 11/29/18 09:06: PT 12.5, INR 1.11, APTT 29.5 11/29/18 09:06: WBC 7.4, RBC 4.79, Hgb 12.9, Hct 39.8, MCV 83.1 D, MCH 26.9, MCHC 32.4, RDW 14.2, Plt Count 218, MPV 11.2 H, Neut % (Auto) 56.6, Lymph % (Auto) 28.9, [place] % (Auto) 9.0 H, Eos % (Auto) 5.2 H, Baso % (Auto) 0.3, Lymph # (Auto) 2.2, [place] # (Auto) 0.7 H, Eos # (Auto) 0.4, Baso # (Auto) 0.02, Absolute Neuts (auto) 4.20 11/29/18 08:36: POC Glucose (mg/dL) 217 H I have reviewed the lab results: Yes - RAD Interpretation Narrative RAD Interpretations (Text): 11/29/18 10:18 CT head reviewed by radiologist, shows: FINDINGS: HEMORRHAGE: No intracranial hemorrhage. BRAIN: Good corticomedullary differentiation is seen. Proportional, diffuse expansion of the ventriculosulcal and cisternal spaces is appreciated with white matter lucency compatible with diffuse cerebral atrophy and chronic microangiopathy. No suspicious extra-axial fluid collection is identified and the midline brain anatomy appears grossly nonfocal as imaged. There is no mass effect throughout. VENTRICLES: Unremarkable. No hydrocephalus. CALVARIUM: Unremarkable. PARANASAL SINUSES: Reactive changes are identified in the bilateral maxillary and ethmoid sinuses of mild severity. MASTOID AIR CELLS: Unremarkable as visualized. No inflammatory changes. OTHER FINDINGS: None. IMPRESSION: No acute intracranial findings as discussed above. Age-appropriate age related neuro degenerative findings are identified instead. Incidental limited sinus disease noted. CT Cervical Spine reviewed by radiologist, shows: FINDINGS: VERTEBRAE: No fracture. Normal alignment. No destructive bony lesion. Craniocervical junction and C1-2 articulation appear unremarkable as well as the odontoid process. Mild multilevel cervical spondylosis identified anteriorly. None significantly identified posteriorly. DISCS/SPINAL CANAL/NEURAL FORAMINA: No significant central canal or neural foraminal stenosis. Discs heights are grossly preserved. Multiple small disc bulges are identified diffusely with the suggestion of C7-T1 without prominent stenosis occurring. PARASPINAL SOFT TISSUES: Unremarkable. OTHER FINDINGS: Heterogeneous density is seen throughout an atrophic thyroid gland. IMPRESSION: No fracture or spondylolisthesis. Multilevel degenerative disc bulging is seen nearly diffusely throughout the cervical spine except for C7-T1. Radiology Orders: 11/29/18 08:33 CERVICAL SPINE W/O CONTRAST [CT] Stat HEAD W/O CONTRAST [CT] Stat 11/29/18 08:34 RIBS BILATERAL W/PA CHEST [RAD] Stat Frame Coverer: Radiologist - EKG Interpretation EKG Interpretation (Text): 11/29/18 08:47 EKG reviewed, shows NSR @68 bpm, No ST elevations, No T wave inversions. Interpreted by ED Physician: Yes Type: 12 lead EKG - Medication Orders Current Medication Orders: Sodium Chloride (Sodium Chloride 0.9%) 1,000 mls @ 100 mls/hr IV .Q10H GONZALEZ Discontinued Medications Tetanus/Reduced Diphtheria/Acell Pertussis (Boostrix Vaccine Inj) 0.5 ml IM .ONCE ONE Stop: 11/29/18 08:36 - Scribe Statement The provider has reviewed the documentation as recorded by the Scribe Timmy Dominguez. All medical record entries made by the Scribe were at my direction and personally dictated by me. I have reviewed the chart and agree that the record accurately reflects my personal performance of the history, physical exam, medical decision making, and the department course for this patient. I have also personally directed, reviewed, and agree with the discharge instructions and disposition. Disposition/Present on Arrival - Present on Arrival Any Indicators Present on Arrival: Yes History of DVT/PE: No History of Uncontrolled Diabetes: Yes Urinary Catheter: No History of Decub. Ulcer: No History Surgical Site Infection Following: None - Disposition Have Diagnosis and Disposition been Completed?: Yes Diagnosis: Fall, Hematoma, Swelling of right hand Disposition: HOME/ ROUTINE Disposition Time: 11:38 Patient Plan: Discharge Patient Problems: Current Active Problems Problem Status Onset Fall Acute Hematoma Acute Swelling of right hand Acute Condition: STABLE Discharge Instructions (ExitCare): Getting Up From a Fall Print Language: SWISS Additional Instructions: All medical record entries made by the Scribe were at my direction and personally dictated by me. I have reviewed the chart and agree that the record accurately reflects my personal performance of the history, physical exam, med ical decision making, and the department course for this patient. I have also personally directed, reviewed, and agree with the discharge instructions and disposition. Please follow up with your PCP in 1 week Please monitor for any changes in mental status, periods of confusion or increased pain Referrals: Kevin Duarte MD [Medical Doctor] - Follow up with primary Nena Dougherty MD [Medical Doctor] - Follow up with primary Forms: [employer] (Panamanian)
[2018-11-29 10:00] LABS: BASO # 0.02 K/mm3 (0.0-2.0); BASO % 0.3 % (0.0-3.0); EOS # 0.4 (0.0-0.7); EOS % 5.2 % (1.5-5.0); HEMOGLOBIN 12.9 g/dL (12.0-16.0); LYMPH # 2.2 (1.2-3.4); LYMPH % 28.9 % (22.0-35.0); MEAN CELL VOLUME 83.1 fl (80.0-105.0); MEAN CORPUSCULAR HEMOGLOBIN 26.9 pg (25.0-35.0); MEAN CORPUSCULAR HGB CONC 32.4 g/dl (31.0-37.0); MEAN PLATELET VOLUME 11.2 fl (7.0-11.0); MONO # 0.7 (0.1-0.6); RBC 4.79 10^6/uL (3.5-6.1); RED CELL DISTRIBUTION WIDTH 14.2 % (11.5-14.5); WHITE BLOOD COUNT 7.4 10^3/uL (4.5-11.0)
--- NOTE | 2018-11-29 10:04 | CT ---
Date of service: 11/29/2018 PROCEDURE: CT HEAD WITHOUT CONTRAST. HISTORY: headache COMPARISON: None available. TECHNIQUE: Axial computed tomography images were obtained through the head/brain without intravenous contrast. Radiation dose: Total exam DLP = 905.77 mGy-cm. This CT exam was performed using one or more of the following dose reduction techniques: Automated exposure control, adjustment of the mA and/or kV according to patient size, and/or use of iterative reconstruction technique. FINDINGS: HEMORRHAGE: No intracranial hemorrhage. BRAIN: Good corticomedullary differentiation is seen. Proportional, diffuse expansion of the ventriculosulcal and cisternal spaces is appreciated with white matter lucency compatible with diffuse cerebral atrophy and chronic microangiopathy. No suspicious extra-axial fluid collection is identified and the midline brain anatomy appears grossly nonfocal as imaged. There is no mass effect throughout. VENTRICLES: Unremarkable. No hydrocephalus. CALVARIUM: Unremarkable. PARANASAL SINUSES: Reactive changes are identified in the bilateral maxillary and ethmoid sinuses of mild severity. MASTOID AIR CELLS: Unremarkable as visualized. No inflammatory changes. OTHER FINDINGS: None. IMPRESSION: No acute intracranial findings as discussed above. Age-appropriate age related neuro degenerative findings are identified instead. Incidental limited sinus disease noted.
[2018-11-29 10:09] LABS: ALB/GLOB RATIO 1.4 (1.1-1.8); ALBUMIN 3.8 g/dL (3.0-4.8); ALT/SGPT 31 U/L (7-56); AST/SGOT 29 U/L (14-36); BLOOD UREA NITROGEN 17 mg/dL (7-21); CALCIUM 9.3 mg/dL (8.4-10.5); GFR NON-AFRICAN AMERICAN > 60; INR 1.11; PARTIAL THROMBOPLASTIN TIME 29.5 Seconds (26.9-38.3); PROTHROMBIN TIME 12.5 SECONDS (9.4-12.5)
--- NOTE | 2018-11-29 10:15 | CT ---
Date of service: 11/29/2018 PROCEDURE: CT Cervical Spine without contrast HISTORY: fall COMPARISON: None available. TECHNIQUE: Axial computed tomography images were obtained of the cervical spine without the use of intravenous contrast. Coronal and sagittal reformatted images were created and reviewed. Radiation dose: Total exam DLP = 612.12 mGy-cm. This CT exam was performed using one or more of the following dose reduction techniques: Automated exposure control, adjustment of the mA and/or kV according to patient size, and/or use of iterative reconstruction technique. FINDINGS: VERTEBRAE: No fracture. Normal alignment. No destructive bony lesion. Craniocervical junction and C1-2 articulation appear unremarkable as well as the odontoid process. Mild multilevel cervical spondylosis identified anteriorly. None significantly identified posteriorly. DISCS/SPINAL CANAL/NEURAL FORAMINA: No significant central canal or neural foraminal stenosis. Discs heights are grossly preserved. Multiple small disc bulges are identified diffusely with the suggestion of C7-T1 without prominent stenosis occurring. PARASPINAL SOFT TISSUES: Unremarkable. OTHER FINDINGS: Heterogeneous density is seen throughout an atrophic thyroid gland. IMPRESSION: No fracture or spondylolisthesis. Multilevel degenerative disc bulging is seen nearly diffusely throughout the cervical spine except for C7-T1.
[2018-11-29 10:21] LABS: B-TYPE NATRIURETIC PEPTIDE 236 pg/mL (0-450); TROPONIN I 0.03 ng/mL
[2018-11-29 12:06] VITALS: BP 104/64; PULSE 63; O2SAT 96
--- NOTE | 2018-11-29 12:19 | RAD ---
PROCEDURE: Bilateral hand radiographs. HISTORY: swelling s/p fall COMPARISON: None. TECHNIQUE: 6 views obtained. FINDINGS: BONES: Right Hand: Normal. No osteoarthritic changes. Left Hand: Normal. No osteoarthritic changes. JOINTS: Right Hand: Normal. Left Hand: Normal. SOFT TISSUES: Right Hand: Normal. Left Hand: Normal. OTHER FINDINGS: None. IMPRESSION: Negative study
--- NOTE | 2018-11-29 12:20 | RAD ---
Date of service: 11/29/2018 PROCEDURE: Radiographs of the chest and bilateral ribs HISTORY: s/p fall COMPARISON: None available. TECHNIQUE: Frontal radiograph of the chest and multiple oblique radiographs of the bilateral ribs were obtained. 5 views obtained. FINDINGS: RIGHT RIBS: No fracture or focal lesion visualized. LEFT RIBS: No fracture or focal lesion visualized. LUNGS: Clear. PLEURA: No pneumothorax or pleural fluid. CARDIOVASCULAR: Normal cardiac size. No pulmonary vascular congestion. No aortic atherosclerotic calcification present OTHER FINDINGS: None. IMPRESSION: Unremarkable radiographs of the chest and bilateral ribs. No rib fracture.
--- NOTE | 2018-11-29 19:14 | CARD ---
APPROVED REPORT Date of service: 11/29/2018 EKG Measurement Heart [id number] <Conclusion> Normal sinus rhythm Minimal voltage criteria for LVH, may be normal variant Q waves leads 3 and AVF- cannot exclude old IMI Anterior infarct, age undetermined CCR Abnormal ECG
== END 2018-11-29 12:06 | disposition home or self-care (01) ==
LOC: ED 08:26
DX: S00.93XA Contusion of unspecified part of head, initial encounter (principal); W10.9XXA Fall (on) (from) unspecified stairs and steps, initial encounter; M79.89 Other specified soft tissue disorders; E78.5 Hyperlipidemia, unspecified; I10 Essential (primary) hypertension; I25.10 Atherosclerotic heart disease of native coronary artery without angina pectoris; E10.9 Type 1 diabetes mellitus without complications; Z79.4 Long term (current) use of insulin; J44.9 Chronic obstructive pulmonary disease, unspecified; I25.2 Old myocardial infarction
CPT/HCPCS: 70450; 71111; 72125; 73130; 80053; 82948; 83735; 83880; 84484; 85025; 85610; 85730; 93005; 99285; J7030

== ENCOUNTER 2018-12-23 12:06 | Emergency (ER) | payer MEDICARE, MEDICAID ==
[2018-12-23 12:06] VITALS: BMI 29.2
[2018-12-23 12:20] VITALS: BP 155/75; PULSE 86; RESP 18; TEMP 98.4; O2SAT 100
[2018-12-23] MEDS ORDERED: Naproxen 550 mg Tab PO STA (12:24)
--- NOTE | 2018-12-23 12:29 | ED PDOC ---
Arrival/HPI - General Chief Complaint: Lower Extremity Problem/Injury Time Seen by Provider: 12/23/18 12:07 Historian: Patient, Family (grandson) - History of Present Illness Narrative History of Present Illness (Text): 12/23/18 12:27 A 88 year old female, whose past medical history includes hypertension, COPD, diabetes type 1, [place], and coronary stent, who is accompanied by grandson and translated, presents to the emergency department complaining of right knee pain. Per grandson, patient fell 1.5 months ago and was seen here in the ER [place] [facility] [place] During this past weekend, pain has worsened. Patient states pain is in both legs, however the pain is worse on the right than left, traveling from the knee and downwards. Pain worsens with bending of the knee. Patient denies any other complaints at this time. Also, grandson mentions patient takes Xarelto. PMD: Dr. Duarte Past Medical History - Provider Review Nursing Documentation Reviewed: Yes - Infectious Disease Hx of Infectious Diseases: None - Tetanus Immunization Tetanus Immunization: Unknown - Cardiac Hx [place]: Yes Hx Hypertension: Yes - Pulmonary Hx Chronic Obstructive Pulmonary Disease (COPD): Yes - Neurological Hx Paralysis: No - HEENT Hx HEENT Disorder: Yes Hx Cataracts: Yes Hx Deafness: Yes ([place]) - Renal Hx Renal Disorder: No - Endocrine/Metabolic Hx Diabetes Mellitus Type 1: Yes - Hematological/Oncological Hx Blood Transfusions: No Hx Blood Transfusion Reaction: No - Integumentary Hx Dermatological Disorder: Yes (RED RASH TO MID CHEST APPLIED TIGER BALM) - Musculoskeletal/Rheumatological Hx Musculoskeletal Disorders: Yes Hx Falls: Yes Hx Fractures: Yes (RIB FRACTURE) - Gastrointestinal Hx Gastrointestinal Disorders: Yes Hx Gall Bladder Disease: Yes (CHOLECYSTECTOMY) Other/Comment: MELENA - Genitourinary/Gynecological Hx Genitourinary Disorders: No - Psychiatric Hx Psychophysiologic Disorder: Yes Hx Depression: Yes Hx Substance Use: No - Surgical History Hx Cholecystectomy: Yes Hx Coronary Stent: Yes - Anesthesia Hx Anesthesia: Yes Hx Anesthesia Reactions: No Hx Malignant Hyperthermia: No - Suicidal Assessment Feels Threatened In Home Enviroment: No Family/Social History - Physician Review Nursing Documentation Reviewed: Yes Family/Social History: No Known Family HX Smoking Status: Never Smoked Hx Alcohol Use: No Hx Substance Use: No Hx Substance Use Treatment: No Allergies/Home Meds Allergies/Adverse Reactions: Allergies No Known Allergies Allergy (Verified 04/28/19 12:18) Home Medications: Home Meds Medication Instructions Recorded Confirmed Aspirin [Adult Low Dose Aspirin EC] 81 mg PO DAILY 05/09/17 11/29/18 Metoprolol Tartrate 25 mg PO BID 05/09/17 11/29/18 Montelukast [Singulair] 10 mg PO DAILY 05/09/17 11/29/18 Insulin Degludec [Tresiba 30 units SQ DAILY 05/25/17 11/29/18 Flextouch U-100] Atorvastatin [Lipitor] 40 mg PO DAILY 11/21/18 11/29/18 Benzonatate 100 mg PO BID 11/21/18 11/29/18 Guaifenesin [Chest Congestion 400 mg PO TID 11/21/18 11/29/18 Relief] Pantoprazole Sodium [Protonix] 40 mg PO DAILY 11/21/18 11/29/18 Rivaroxaban [Xarelto] 20 mg PO DAILY 11/21/18 11/29/18 metFORMIN [glucOPHAGE] 500 mg PO QPM 11/21/18 11/29/18 Budesonide/Formoterol Fumarate 2 puff NEB Q6 PRN 11/29/18 11/29/18 [Symbicort 160-4.5 Mcg Inhaler] Fenofibrate [Tricor] 48 mg PO DAILY 11/29/18 11/29/18 Glimepiride [amaRYL] 2 mg PO BID 11/29/18 11/29/18 Isosorbide Mononitrate [Isosorbide 30 mg PO DAILY 11/29/18 11/29/18 Mononitrate ER] Lisinopril [Zestril] 2.5 mg PO DAILY 11/29/18 11/29/18 Review of Systems - Physician Review All systems were reviewed & negative as marked: Yes - Review of Systems Constitutional: absent: Fevers, Night Sweats Musculoskeletal: Other (right knee pain) Physical Exam Vital Signs Reviewed: Yes Vital Signs Temp Pulse Resp BP Pulse Ox 12/23/18 12:16 98.4 F 86 18 155/75 H 100 Temperature: Afebrile Blood Pressure: Normal Pulse: Regular Respiratory Rate: Normal Appearance: Positive for: Well-Appearing, Non-Toxic, Comfortable Pain Distress: None Mental Status: Positive for: Alert and Oriented X 3 - Systems Exam Head: Present: Atraumatic, Normocephalic Pupils: Present: PERRL Extroacular Muscles: Present: EOMI Conjunctiva: Present: Normal Mouth: Present: Moist Mucous Membranes Neck: Present: Normal Range of Motion Respiratory/Chest: Present: Clear to Auscultation, Good Air Exchange. No: Respiratory Distress, Accessory Muscle Use Cardiovascular: Present: Regular Rate and Rhythm, Normal S1, S2. No: Murmurs Abdomen: No: Tenderness, Distention, Peritoneal Signs Back: Present: Normal Inspection Upper Extremity: Present: Normal Inspection. No: Cyanosis, Edema Lower Extremity: Present: Tenderness (right knee) Neurological: Present: GCS=15, CN II-XII Intact, Speech Normal Skin: Present: Warm, Dry, Normal Color. No: Rashes Psychiatric: Present: Alert, Oriented x 3, Normal Insight, Normal Concentration Medical Decision Making ED Course and Treatment: 12/23/18 12:31 Impression: 88 year old female with worsening right knee pain. Physical exam shows right knee tenderness. Plan: -- Naproxen -- Bilateral Knee X-Ray -- Reassess and disposition Prior Visits: Notes and results from previous visits were reviewed. Patient was last seen in the emergency department on 11/29/2018 for evaluation of mechanical fall. Patient was discharged home. Progress Notes: 12/23/18 14:58 old fall r/o fx vs arthritis, pt already on anticoagulation for dvt. no leg swelling ttp. - RAD Interpretation Radiology Orders: 12/23/18 12:23 KNEES BILATERAL [RAD] Stat - Medication Orders Current Medication Orders: Naproxen (Anaprox Ds) 550 mg PO STAT STA Stop: 12/23/18 12:25 - Scribe Statement The provider has reviewed the documentation as recorded by the Farzaneh Grider Provider Scribe Attestation: All medical record entries made by the Farzaneh were at my direction and personally dictated by me. I have reviewed the chart and agree that the record accurately reflects my personal performance of the history, physical exam, medical decision making, and the department course for this patient. I have also personally directed, reviewed, and agree with the discharge instructions and disposition. Disposition/Present on Arrival - Present on Arrival Any Indicators Present on Arrival: No History of DVT/PE: No History of Uncontrolled Diabetes: Yes Urinary Catheter: No History of Decub. Ulcer: No History Surgical Site Infection Following: None - Disposition Have Diagnosis and Disposition been Completed?: Yes Diagnosis: Knee pain Disposition: HOME/ ROUTINE Disposition Time: 12:00 Condition: STABLE Discharge Instructions (ExitCare): Chronic Knee Pain (DC), Knee Pain (DC) Additional Instructions: return to er with worsening symptoms or concerns. Prescriptions: Naproxen [Naprosyn] 500 mg PO BID PRN #14 tablet PRN Reason: Pain, Mild (1-3) Referrals: Krishna Mathew DO [Staff Provider] - Follow up with primary Forms: [employer] (Swedish)
--- NOTE | 2018-12-23 13:24 | RAD ---
Date of service: 12/23/2018 PROCEDURE: Bilateral Knee Radiographs. HISTORY: knee pain COMPARISON: Bilateral knee radiographs dated 12/21/2015. TECHNIQUE: 4 views obtained. FINDINGS: BONES: Right Knee: No acute fracture. Left Knee: No acute fracture. JOINTS: Right Knee: Tricompartmental narrowing with degenerative spurring. Left knee: Tricompartmental narrowing degenerative spurring. SOFT TISSUES: Right Knee: Normal. Left Knee: Normal. JOINT EFFUSION: Right Knee: None. Left Knee: None. OTHER FINDINGS: None. IMPRESSION: No demonstrated fracture dislocation. Tricompartmental arthritic changes.
== END 2018-12-23 13:02 | disposition home or self-care (01) ==
LOC: ED 12:06
DX: M25.561 Pain in right knee (principal)

== ENCOUNTER 2018-12-28 15:52 | Observation (INO) | payer MEDICARE, MEDICAID ==
--- NOTE | 2018-12-28 17:16 | ED PDOC ---
Arrival/HPI - General Chief Complaint: Lower Extremity Problem/Injury Historian: Patient - History of Present Illness Narrative History of Present Illness (Text): 12/28/18 17:11 An 88 year old Yi-speaking female (translation provided by daughter), whose past medical history includes hypertension, COPD, diabetes type 1, GA, and coronary stent, who is accompanied by daughter, presents to the ED complaining of bilateral leg pain for the past 3 days. Daughter reports patient was in the ED on 12/23/18 for for right leg pain, which has been worsening and has now extended to entirety of both legs. Daughter denies any chest pain or shortness of breath. PMD: Dr. Duarte Time/Duration: < week Symptom Course: Worsening Activities at Onset: Light Context: Home Past Medical History - Provider Review Nursing Documentation Reviewed: Yes Primary Care Provider: Derrick Duarte - Infectious Disease Hx of Infectious Diseases: None - Tetanus Immunization Tetanus Immunization: Unknown - Reproductive Menopause: Yes - Cardiac Hx GA: Yes Hx Hypertension: Yes - Pulmonary Hx Chronic Obstructive Pulmonary Disease (COPD): Yes - Neurological Hx Paralysis: No - HEENT Hx HEENT Disorder: Yes Hx Cataracts: Yes Hx Deafness: Yes ([place]) - Renal Hx Renal Disorder: No - Endocrine/Metabolic Hx Diabetes Mellitus Type 1: Yes - Hematological/Oncological Hx Blood Transfusions: No Hx Blood Transfusion Reaction: No - Integumentary Hx Dermatological Disorder: Yes (RED RASH TO MID CHEST APPLIED TIGER BALM) - Musculoskeletal/Rheumatological Hx Musculoskeletal Disorders: Yes Hx Falls: Yes Hx Fractures: Yes (RIB FRACTURE) - Gastrointestinal Hx Gastrointestinal Disorders: Yes Hx Gall Bladder Disease: Yes (CHOLECYSTECTOMY) Other/Comment: MELENA - Genitourinary/Gynecological Hx Genitourinary Disorders: No - Psychiatric Hx Psychophysiologic Disorder: Yes Hx Depression: Yes Hx Substance Use: No - Surgical History Hx Cholecystectomy: Yes Hx Coronary Stent: Yes - Anesthesia Hx Anesthesia: Yes Hx Anesthesia Reactions: No Hx Malignant Hyperthermia: No - Suicidal Assessment Feels Threatened In Home Enviroment: No Family/Social History - Physician Review Nursing Documentation Reviewed: Yes Family/Social History: Unknown Family HX Smoking Status: Never Smoked Hx Alcohol Use: No Hx Substance Use: No Hx Substance Use Treatment: No Allergies/Home Meds Allergies/Adverse Reactions: Allergies No Known Allergies Allergy (Verified 12/23/18 12:18) Home Medications: Home Meds Medication Instructions Recorded Confirmed RX: Aspirin [Adult Low Dose 81 mg PO DAILY 05/09/17 12/28/18 Aspirin EC] RX: Metoprolol Tartrate 25 mg PO BID 05/09/17 12/28/18 RX: Montelukast [Singulair] 10 mg PO DAILY 05/09/17 12/28/18 RX: Insulin Degludec [Tresiba 30 units SQ DAILY 05/25/17 12/28/18 Flextouch U-100] Atorvastatin [Lipitor] 40 mg PO DAILY 11/21/18 12/28/18 Guaifenesin [Chest Congestion 400 mg PO TID 11/21/18 12/28/18 Relief] Pantoprazole Sodium [Protonix] 40 mg PO DAILY 11/21/18 12/28/18 RX: Benzonatate 100 mg PO BID 11/21/18 12/28/18 Rivaroxaban [Xarelto] 20 mg PO DAILY 11/21/18 12/28/18 metFORMIN [glucOPHAGE] 500 mg PO QPM 11/21/18 12/28/18 Budesonide/Formoterol Fumarate 2 puff NEB Q6 PRN 11/29/18 12/28/18 [Symbicort 160-4.5 Mcg Inhaler] RX: Fenofibrate [Tricor] 48 mg PO DAILY 11/29/18 12/28/18 RX: Glimepiride [amaRYL] 2 mg PO BID 11/29/18 12/28/18 RX: Isosorbide Mononitrate 30 mg PO DAILY 11/29/18 12/28/18 [Isosorbide Mononitrate ER] RX: Lisinopril [Zestril] 2.5 mg PO DAILY 11/29/18 12/28/18 Review of Systems - Review of Systems Constitutional: absent: Fatigue, Fevers Eyes: absent: Vision Changes ENT: absent: Hearing Changes Respiratory: absent: SOB, Cough Cardiovascular: absent: Chest Pain Gastrointestinal: absent: Abdominal Pain, Nausea, Vomiting Genitourinary Female: absent: Dysuria, Hematuria Musculoskeletal: Other (bilateral leg pain). absent: Back Pain, Neck Pain Skin: absent: Rash Neurological: absent: Headache, Dizziness Endocrine: absent: Diaphoresis Hemo/Lymphatic: absent: Adenopathy Psychiatric: absent: Anxiety, Depression Physical Exam - Physical Exam Narrative Physical Exam (Text): 12/28/18 17:17 Head: Atraumatic. Normocephalic. Eyes: PERRL. EOMI. Conjunctivae are not pale. ENT: Mucous membranes are moist and intact. Oropharynx is clear and symmetric. Neck: Supple. Full ROM. No JVD. No lymphadenopathy. Cardiovascular: Regular rate. Regular rhythm. No murmurs, rubs, or gallops. Distal pulses are palpable. Pulmonary/Chest: No evidence of respiratory distress. Clear to auscultation bilaterally. No wheezing, rales or rhonchi. No chest wall pain. Abdominal: Soft and non-distended. There is no tenderness. No rebound, guarding, or rigidity. Back: No CVA tenderness. No midline tenderness. Extremities: No edema. Feet are warm. There is palpable but weak distal pulses. No ulcerations. Varicose veins noted. She has pain on palpation of right ankle, right tib fib, right hip with ROM, direct palpation. No ulcers or lesions. Skin: Skin is warm and dry. No petechiae. No purpura. No ulcerations. Neurological: Alert, awake, and oriented. Motor and sensory exam intact. Moves lower extremity with good strength. Psychiatric: Good eye contact. Normal interaction, affect, and behavior. 12/28/18 19:12 Vital Signs Reviewed: Yes Vital Signs Temp Pulse Resp BP Pulse Ox 12/28/18 16:06 98.0 F 90 19 113/70 96 Temperature: Afebrile Blood Pressure: Normal Pulse: Regular Respiratory Rate: Normal Appearance: Positive for: Uncomfortable Pain Distress: Moderate Mental Status: Positive for: Alert and Oriented X 3 Medical Decision Making ED Course and Treatment: 12/28/18 17:18 Impression: An 88 year old female who presents to the ED complaining of bilateral leg pain. Differential Diagnosis included but are not limited to: PVD, neuropathy, fracture, cellulitis -- Labs -- Right ankle xray -- Right hip xray -- Lower extremities ultrasound -- Reassess and disposition Progress Notes: Patient's prior visits reviewed. She has palpable pulses, skin warm. She has history of fall last month. At that time hand and chest imaging were obtained. Hx obtained fro daughter who translates at bedside. She reports she had subsequent visit for leg pain, discharged with pain medication which has been ineffective. CUrrently pain has progressed. Ultrasound negative for dvt. Xrays with no unstable fx noted. Patient still unable to bear weight. Given failure of outpatient therapy, persistent and worsening leg pain, will admit for observation, serial exams, possible orthopedic consultation. Case accepted by Dr. Chadwick for hospitalist service as patient's PMD is Dr. Peri Duarte. Patient with no complaints of chest pain, no shortness of breath. No dizziness or lightheadedness. 12/28/18 23:02 12/28/18 23:04 - RAD Interpretation Radiology Orders: 12/28/18 17:09 DUPLEX LOWER EXTRM VEIN RIGHT [US] Stat 12/28/18 17:10 Hip Right [HIP MIN 2V W/ PELVIS RT] [RAD] Stat - Scribe Statement The provider has reviewed the documentation as recorded by the Scribe Brice Elmore Provider Scribe Attestation: All medical record entries made by the Scribe were at my direction and personally dictated by me. I have reviewed the chart and agree that the record accurately reflects my personal performance of the history, physical exam, medical decision making, and the department course for this patient. I have also personally directed, reviewed, and agree with the discharge instructions and disposition. Disposition/Present on Arrival - Present on Arrival Any Indicators Present on Arrival: Yes History of DVT/PE: No History of Uncontrolled Diabetes: Yes Urinary Catheter: No History of Decub. Ulcer: No History Surgical Site Infection Following: None - Disposition Have Diagnosis and Disposition been Completed?: Yes Diagnosis: Intractable pain, Leg pain Disposition: HOSPITALIZED Disposition Time: 20:00 Patient Plan: Admission, Observation Patient Problems: Current Active Problems Problem Status Onset Intractable pain Acute Condition: FAIR
[2018-12-28 18:28] LABS: BASO # 0.02 K/mm3 (0.0-2.0); BASO % 0.2 % (0.0-3.0); EOS # 0.1 (0.0-0.7); EOS % 1.5 % (1.5-5.0); HEMOGLOBIN 12.5 g/dL (12.0-16.0); LYMPH # 3.5 (1.2-3.4); LYMPH % 41.8 % (22.0-35.0); MEAN CELL VOLUME 81.1 fl (80.0-105.0); MEAN CORPUSCULAR HEMOGLOBIN 26.8 pg (25.0-35.0); MEAN CORPUSCULAR HGB CONC 33.1 g/dl (31.0-37.0); MEAN PLATELET VOLUME 10.2 fl (7.0-11.0); MONO # 0.4 (0.1-0.6); MONO % 4.6 % (1.0-6.0); RBC 4.66 10^6/uL (3.5-6.1); RED CELL DISTRIBUTION WIDTH 14.4 % (11.5-14.5); WHITE BLOOD COUNT 8.4 10^3/uL (4.5-11.0)
[2018-12-28 18:40] LABS: ALB/GLOB RATIO 1.3 (1.1-1.8); ALBUMIN 3.7 g/dL (3.0-4.8); ALT/SGPT 16 U/L (7-56); AST/SGOT 24 U/L (14-36); BLOOD UREA NITROGEN 35 mg/dL (7-21); CALCIUM 8.8 mg/dL (8.4-10.5); GFR NON-AFRICAN AMERICAN > 60
--- NOTE | 2018-12-28 18:58 | RAD ---
Date of service: 12/28/2018 PROCEDURE: Right Ankle Radiographs. HISTORY: Right lower extremity Pain. No history of recent/ related trauma provided. COMPARISON: None available. TECHNIQUE: 3 views obtained. FINDINGS: BONES: Plantar and Achilles Tendon insertion calcaneal spurs. No fractures identified. JOINTS: Normal. No osteoarthritis. Ankle mortise maintained. Talar dome intact SOFT TISSUES: Normal. OTHER FINDINGS: None. IMPRESSION: No acute findings related to/ accounting for the clinical presentation.
[2018-12-28] MEDS ORDERED: Non Formulary Medication (Budesonide/Formoterol Fumarate [Symbicort 160-4.5 Mcg Inhaler] 2 NEB PRN (22:26)
--- NOTE | 2018-12-29 00:02 | CP.PCM.HP ---
<Bandar Cobb - Last Filed: 12/29/18 00:32> History of Present Illness - History of Present Illness History of Present Illness: PGY-1 Medicine H&P for Dr. Chadwick CC: Right leg pain HPI: Patient is a Ethiopian-speaking 88 year old female with a past medical history of DVT, DM, HTN, CAD (s/p 1 stent), HLD, and asthma, presenting for right lower leg pain for the past 4 days. Patient reports that she fell 1 week ago but did not go to a hospital for it because it did not hurt her too badly. She states that recently over the past 4 days the pain has been progressively getting worse and is now rated an 8/10 in both legs though the right hurts worse than the left. Patient was in the ED on 12/23/18 for for right leg pain, which has been worsening and has now extended to entirety of both legs. She was also admitted to [facility] in 07/14/2018 for similar complaints. She denies recent travel or sick contacts. She denies fevers, chills, dizziness, cough, sore throat, shortness of breath, palpitations, chest pain, abdominal pain, nausea, vomiting, diarrhea, or urinary symptoms. 12-point ROS reviewed and negative, except mentioned in HPI. PMHx: DVT, DM, HTN, CAD (s/p 1 stent), HLD and asthma PSHx: 1 X cardiac stent Allergies: Losartan - cough Family Hx: Non-contributory. Social Hx: Denies tobacco, alcohol, or drug use. Patient lives alone at home with family members close by. Medications: See OCT PMD: Dr. Duarte Nitrate Operator: Dr. Holland Pharmacy: [facility] Zenaida Nuñez (Daughter): Ripening Room Operator ID# [id number] Present on Admission - Present on Admission Any Indicators Present on Admission: Yes History of DVT/PE: Yes History of Uncontrolled Diabetes: No Urinary Catheter: No Decubitus Ulcer Present: No Past Patient History - Infectious Disease Hx of Infectious Diseases: None - Tetanus Immunizations Tetanus Immunization: Unknown - Past Social History Smoking Status: Never Smoked - CARDIAC Hx Heart Attack: Yes Hx Hypertension: Yes - PULMONARY Hx Chronic Obstructive Pulmonary Disease (COPD): Yes - NEUROLOGICAL Hx Paralysis: No - HEENT Hx HEENT Problems: Yes Hx Cataracts: Yes Hx Deafness: Yes ([place]) - RENAL Hx Chronic Kidney Disease: No - ENDOCRINE/METABOLIC Hx Diabetes Mellitus Type 1: Yes - HEMATOLOGICAL/ONCOLOGICAL Hx Blood Transfusions: No Hx Blood Transfusion Reaction: No - INTEGUMENTARY Hx Dermatological Problems: Yes (RED RASH TO MID CHEST APPLIED TIGER BALM) - MUSCULOSKELETAL/RHEUMATOLOGICAL Hx Musculoskeletal Disorders: Yes Hx Falls: Yes Hx Fractures: Yes (RIB FRACTURE) - GASTROINTESTINAL Hx Gastrointestinal Disorders: Yes Hx Gall Bladder Disease: Yes (CHOLECYSTECTOMY) Other/Comment: MELENA - GENITOURINARY/GYNECOLOGICAL Hx Genitourinary Disorders: No - PSYCHIATRIC Hx Psychophysiologic Disorder: Yes Hx Depression: Yes Hx Substance Use: No - SURGICAL HISTORY Hx Cholecystectomy: Yes Hx Coronary Stent: Yes - ANESTHESIA Hx Anesthesia: Yes Hx Anesthesia Reactions: No Hx Malignant Hyperthermia: No Meds Allergies/Adverse Reactions: Allergies Allergy/AdvReac Type Severity Reaction Status Date / Time No Known Allergies Allergy Verified 12/23/18 12:18 Physical Exam - Constitutional Appears: Well, Non-toxic, No Acute Distress - Head Exam Head Exam: ATRAUMATIC, NORMAL INSPECTION - Eye Exam Eye Exam: EOMI, Normal appearance - ENT Exam ENT Exam: Mucous Membranes Dry - Neck Exam Neck exam: Positive for: Normal Inspection - Respiratory Exam Respiratory Exam: Clear to Auscultation Bilateral, NORMAL BREATHING PATTERN. absent: Rales, Rhonchi, Wheezes, Respiratory Distress, Stridor - Cardiovascular Exam Cardiovascular Exam: REGULAR RHYTHM, +S1, +S2. absent: Gallop, Rubs, Systolic Murmur - GI/Abdominal Exam GI & Abdominal Exam: Normal Bowel Sounds, Soft. absent: Distended, Firm, Guarding, Tenderness - Extremities Exam Extremities exam: Positive for: calf tenderness (Bilateral calf tender to plapation), normal capillary refill, pedal pulses present. Negative for: joint swelling, pedal edema - Back Exam Back exam: NORMAL INSPECTION. absent: CVA tenderness (L), CVA tenderness (R) - Neurological Exam Neurological exam: Alert, CN II-XII Intact, Oriented x3 - Psychiatric Exam Psychiatric exam: Normal Affect, Normal Mood - Skin Skin Exam: Dry, Intact, Normal Color, Warm Results - Vital Signs Recent Vital Signs: Last Vital Signs Temp 98.0 F 12/28/18 16:06 Pulse 68 12/28/18 21:31 Resp 16 12/28/18 21:31 BP 112/63 12/28/18 21:31 Pulse Ox 100 12/28/18 21:31 - Labs Result Diagrams: 12/28/18 18:21 12/28/18 18:21 Labs: Laboratory Results - last 24 hr 12/28/18 12/28/18 18:21 18:21 WBC 8.4 RBC 4.66 Hgb 12.5 Hct 37.8 MCV 81.1 MCH 26.8 MCHC 33.1 RDW 14.4 Plt Count 190 MPV 10.2 Neut % (Auto) 51.9 Lymph % (Auto) 41.8 H [place] % (Auto) 4.6 Eos % (Auto) 1.5 Baso % (Auto) 0.2 Lymph # (Auto) 3.5 H [place] # (Auto) 0.4 Eos # (Auto) 0.1 Baso # (Auto) 0.02 Absolute Neuts (auto) 4.34 Sodium 135 Potassium 5.0 Chloride 102 Carbon Dioxide 25 Anion Gap 13 BUN 35 H Creatinine 0.8 Est GFR ( Amer) > 60 Est GFR (Non-Af Amer) > 60 Random Glucose 208 H Calcium 8.8 Total Bilirubin 0.5 AST 24 ALT 16 Alkaline Phosphatase 66 Total Protein 6.6 Albumin 3.7 Globulin 2.9 Albumin/Globulin Ratio 1.3 Assessment & Plan - Assessment and Plan (Free Text) Assessment: Patient is a 88 year old female with a past medical history of DM, HTN, DVT, CAD (s/p 1 stent), HLD, and asthma, presenting for right lower leg pain for the past 4 days. Plan: Right leg pain s/p mechanical fall - Rule out DVT's vs fractures vs diabetic neuropathy vs restless leg syndrome - Ankle X-ray: no fractures - Hip/Pelvis X-ray: no fractures as read by me (pending official read) - LE U/S: pending official read - Toradol 15mg IV Q12H - Flexeril 5mg PO Q12H - Percocet 5/325mg Q6H PRN - Follow up iron studies - Follow up TSH, Vitamin B12 levels - Physical therapy evaluation - Patient on ASA and Xarelto CAD s/p stent - Continue home ASA and Xarelto - Continue home Imdur 30mg PO QD - Continue home Lopressor and Lipitor - Last echo (05/14): EF: 60-65% Hx of DVT's - Patient on Xarelto 20mg PO QD - Follow up LE ultrasound Diabetes melitus - ISS - Low dose - Accuchecks ACHS - Hypoglycemia protocol Hyperlipidemia - Continue home Lipitor Hypertension - Continue home Metoprolol and Lisinopril - Continue to monitor Hx of Asthma - Continue Symbicort PRN Prophylaxis: - DVT: Patient on Xarelto - GI: Protonix 40mg PO QD Patient seen and case discussed with attending, Dr. Chadwick. Bandar Cobb, PGY-1 <Hema Chadwick - Last Filed: 12/29/18 06:48> Results - Vital Signs Recent Vital Signs: Last Vital Signs Temp 98.0 F 12/28/18 16:06 Pulse 68 12/28/18 21:31 Resp 18 12/29/18 01:01 BP 112/63 12/28/18 21:31 Pulse Ox 100 12/28/18 21:31 - Labs Result Diagrams: 12/28/18 18:21 12/28/18 18:21 Labs: Laboratory Results - last 24 hr 12/28/18 12/28/18 18:21 18:21 WBC 8.4 RBC 4.66 Hgb 12.5 Hct 37.8 MCV 81.1 MCH 26.8 MCHC 33.1 RDW 14.4 Plt Count 190 MPV 10.2 Neut % (Auto) 51.9 Lymph % (Auto) 41.8 H [place] % (Auto) 4.6 Eos % (Auto) 1.5 Baso % (Auto) 0.2 Lymph # (Auto) 3.5 H [place] # (Auto) 0.4 Eos # (Auto) 0.1 Baso # (Auto) 0.02 Absolute Neuts (auto) 4.34 Sodium 135 Potassium 5.0 Chloride 102 Carbon Dioxide 25 Anion Gap 13 BUN 35 H Creatinine 0.8 Est GFR ( Amer) > 60 Est GFR (Non-Af Amer) > 60 Random Glucose 208 H Calcium 8.8 Total Bilirubin 0.5 AST 24 ALT 16 Alkaline Phosphatase 66 Total Protein 6.6 Albumin 3.7 Globulin 2.9 Albumin/Globulin Ratio 1.3 Attending/Attestation - Attestation I have personally seen and examined this patient.: Yes I have fully participated in the care of the patient.: Yes I have reviewed all pertinent clinical information: Yes Notes (Text): 12/29/18 06:47 Seen and examined. Discussed with resident. C/O disabling pain in RLE >>> LLE. Exam is benign. Will obtain TSH, B12, Iron studies and Vitamin D levels. PT to evakluate. started toradol, percocet and flexeril.
[2018-12-29] MEDS: Sodium Chloride 0.9% 1,000 ML IV SCH ×2 (00:10→12:00)
[2018-12-29] MEDS: Oxycodone/Acetaminophen 5/325 mg Tab PO PRN ×2 (00:11→06:07)
[2018-12-29] MEDS: Pantoprazole 40 mg EC Tab PO SCH (05:34)
[2018-12-29 07:08] LABS: BASO # 0.02 K/mm3 (0.0-2.0); BASO % 0.3 % (0.0-3.0); EOS # 0.3 (0.0-0.7); EOS % 4.5 % (1.5-5.0); HEMOGLOBIN 11.6 g/dL (12.0-16.0); LYMPH % 51.6 % (22.0-35.0); MEAN CELL VOLUME 81.7 fl (80.0-105.0); MEAN CORPUSCULAR HGB CONC 31.8 g/dl (31.0-37.0); MEAN PLATELET VOLUME 10.3 fl (7.0-11.0); MONO # 0.4 (0.1-0.6); MONO % 7.3 % (1.0-6.0); RBC 4.47 10^6/uL (3.5-6.1); RED CELL DISTRIBUTION WIDTH 14.3 % (11.5-14.5); WHITE BLOOD COUNT 5.8 10^3/uL (4.5-11.0)
[2018-12-29 07:18] LABS: IRON 70 ug/dL (45-180)
[2018-12-29 07:23] LABS: ALB/GLOB RATIO 1.2 (1.1-1.8); ALBUMIN 3.3 g/dL (3.0-4.8); ALT/SGPT 14 U/L (7-56); AST/SGOT 24 U/L (14-36); BLOOD UREA NITROGEN 27 mg/dL (7-21); CALCIUM 8.6 mg/dL (8.4-10.5); GFR NON-AFRICAN AMERICAN > 60
[2018-12-29 07:29] LABS: % IRON SATURATION 26 % (20-55); TOTAL IRON BINDING CAPACITY 270 ug/dL (265-497)
[2018-12-29 08:19] LABS: FREE T4 1.46 ng/dL (0.78-2.19)
[2018-12-29] MEDS: Insulin Reg-LOW-Coverage SC SCH ×4 (10:10→21:24)
[2018-12-29 10:28] LABS: TRANSFERRIN 199.66 mg/dL (206-381)
--- NOTE | 2018-12-29 18:10 | RAD ---
PROCEDURE: Right Hip Radiographs. HISTORY: hx of trauma, r/o fx COMPARISON: None. TECHNIQUE: 2 views obtained. FINDINGS: BONES: Normal. No fracture. JOINTS: Normal. SOFT TISSUES: Normal. OTHER FINDINGS: None. IMPRESSION: Normal radiographs of right hip.
[2018-12-30] MEDS ORDERED: DiphenhydrAMINE 50 mg/ml Inj IVP ONE (01:45)
[2018-12-30] MEDS: Sodium Chloride 0.9% 1,000 ML IV SCH (02:07)
[2018-12-30] MEDS: Pantoprazole 40 mg EC Tab PO SCH (05:39)
[2018-12-30 07:13] LABS: BASO # 0.02 K/mm3 (0.0-2.0); BASO % 0.3 % (0.0-3.0); EOS # 0.3 (0.0-0.7); EOS % 4.1 % (1.5-5.0); HEMOGLOBIN 13.2 g/dL (12.0-16.0); LYMPH # 3.6 (1.2-3.4); LYMPH % 53.8 % (22.0-35.0); MEAN CELL VOLUME 82.6 fl (80.0-105.0); MEAN CORPUSCULAR HEMOGLOBIN 26.5 pg (25.0-35.0); MEAN PLATELET VOLUME 10.2 fl (7.0-11.0); MONO # 0.5 (0.1-0.6); MONO % 8.1 % (1.0-6.0); RBC 4.99 10^6/uL (3.5-6.1); RED CELL DISTRIBUTION WIDTH 14.2 % (11.5-14.5); WHITE BLOOD COUNT 6.7 10^3/uL (4.5-11.0)
[2018-12-30 07:18] LABS: ALB/GLOB RATIO 1.2 (1.1-1.8); ALBUMIN 3.9 g/dL (3.0-4.8); ALT/SGPT 14 U/L (7-56); AST/SGOT 24 U/L (14-36); BLOOD UREA NITROGEN 16 mg/dL (7-21); GFR NON-AFRICAN AMERICAN > 60
[2018-12-30] MEDS: Insulin Reg-LOW-Coverage SC SCH ×2 (08:09→12:30)
[2018-12-30 09:19] VITALS: BP 167/88; PULSE 77; RESP 20; TEMP 98.1; O2SAT 99
--- NOTE | 2018-12-30 14:53 | CP.PCM.DIS ---
Provider - Provider Date of Admission: 12/28/18 20:31 Attending physician: Terrance Kaminski MD Primary care physician: Justen Duarte MD Consults: 12/29/18 01:00 Nursing Referral for Palliative Care Routine Comment: Physician Instructions: Reason For Exam: PROTOCOL Social Work Referral Routine Comment: PROTOCOL Physician Instructions: Reason For Exam: DC PLANNING 12/29/18 01:43 Inpatient METAL FINISHER Core Measures Referral Routine Comment: Physician Instructions: Reason For Exam: PROTOCOL Transition In Care/Readmission Reduction Routine Comment: Physician Instructions: Reason For Exam: PROTOCOL Time Spent in preparation of Discharge (in minutes): 35 Hospital Course - Lab Results Lab Results: Most Recent Lab Values WBC 6.7 10^3/uL (4.5-11.0) 12/30/18 05:00 RBC 4.99 10^6/uL (3.5-6.1) 12/30/18 05:00 Hgb 13.2 g/dL (12.0-16.0) 12/30/18 05:00 Hct 41.2 % (36.0-48.0) 12/30/18 05:00 MCV 82.6 fl (80.0-105.0) 12/30/18 05:00 MCH 26.5 pg (25.0-35.0) 12/30/18 05:00 MCHC 32.0 g/dl (31.0-37.0) 12/30/18 05:00 RDW 14.2 % (11.5-14.5) 12/30/18 05:00 Plt Count 187 10^3/uL (120.0-450.0) 12/30/18 05:00 MPV 10.2 fl (7.0-11.0) 12/30/18 05:00 Neut % (Auto) 33.7 % (50.0-68.0) L 12/30/18 05:00 Lymph % (Auto) 53.8 % (22.0-35.0) H 12/30/18 05:00 [place] % (Auto) 8.1 % (1.0-6.0) H 12/30/18 05:00 Eos % (Auto) 4.1 % (1.5-5.0) 12/30/18 05:00 Baso % (Auto) 0.3 % (0.0-3.0) 12/30/18 05:00 Lymph # (Auto) 3.6 (1.2-3.4) H 12/30/18 05:00 [place] # (Auto) 0.5 (0.1-0.6) 12/30/18 05:00 Eos # (Auto) 0.3 (0.0-0.7) 12/30/18 05:00 Baso # (Auto) 0.02 K/mm3 (0.0-2.0) 12/30/18 05:00 Absolute Neuts (auto) 2.24 (1.4-6.5) 12/30/18 05:00 Sodium 143 mmol/L (132-148) 12/30/18 05:00 Potassium 4.2 mmol/L (3.6-5.0) 12/30/18 05:00 Chloride 111 mmol/L (98-107) H 12/30/18 05:00 Carbon Dioxide 27 mmol/L (21-33) 12/30/18 05:00 Anion Gap 9 (10-20) L 12/30/18 05:00 BUN 16 mg/dL (7-21) 12/30/18 05:00 Creatinine 0.6 mg/dl (0.7-1.2) L 12/30/18 05:00 Est GFR ( Amer) > 60 12/30/18 05:00 Est GFR (Non-Af Amer) > 60 12/30/18 05:00 POC Glucose (mg/dL) 262 mg/dL (65-110) H 12/30/18 11:46 Random Glucose 139 mg/dL (70-110) H 12/30/18 05:00 Calcium 9.0 mg/dL (8.4-10.5) 12/30/18 05:00 Phosphorus 3.2 mg/dL (2.5-4.5) 12/29/18 05:00 Magnesium 2.0 mg/dL (1.7-2.2) 12/29/18 05:00 Iron 70 ug/dL (45-180) 12/29/18 05:00 TIBC 270 ug/dL (265-497) 12/29/18 05:00 % Saturation 26 % (20-55) 12/29/18 05:00 Transferrin 199.66 mg/dL (206-381) L 12/29/18 05:00 Total Bilirubin 0.5 mg/dL (0.2-1.3) 12/30/18 05:00 AST 24 U/L (14-36) 12/30/18 05:00 ALT 14 U/L (7-56) 12/30/18 05:00 Alkaline Phosphatase 86 U/L (38-126) 12/30/18 05:00 Total Protein 7.1 g/dL (5.8-8.3) 12/30/18 05:00 Albumin 3.9 g/dL (3.0-4.8) 12/30/18 05:00 Globulin 3.2 gm/dL 12/30/18 05:00 Albumin/Globulin Ratio 1.2 (1.1-1.8) 12/30/18 05:00 Vitamin B12 380 pg/mL (239-931) 12/29/18 05:00 25-OH Vitamin D Total 16.4 NG/ML (30.0-100.0) L 12/29/18 07:00 Free T4 1.46 ng/dL (0.78-2.19) 12/29/18 05:00 TSH 3rd Generation 3.07 mIU/mL (0.46-4.68) 12/29/18 05:00 - Hospital Course Hospital Course: Nikhil Herbert, PGY1 Discharge Summary for Dr. Guerrero Patient is a Central African-speaking 88 year old female with a past medical history of DVT, DM, HTN, CAD (s/p 1 stent), HLD, and asthma, presented for right lower leg pain for the past 4 days. Patient reported that she fell 1 week ago but did not go to a hospital for it because it did not hurt her too badly. She stated that recently over the past 4 days the pain got progressively worse. She had a recent admission to the ED on 12/23 for right leg pain. Pain is now extended to both legs. Given that patient had a fall, ankle XR and Hip/Pelvis XR was done but it showed no evidence of fracture or acute changes. LE doppler was also done but there was no evidence of DVT. During hospital course, patient was resumed on home medications but started on motrin and gabapentin. She tolerated the medication well without issues. Her pain improved during hospital course. Patient likely has an underlying diabetic neuropathy and explained that she needs to follow up with her PMD for it. PT evaluated patient and she did well, recommended home for discharge. Her pain is resolved. She also has good family support on discharge. Upon reviewing all labs, vitals, and imaging patient is hemodynamically stable for discharge to home. The only new medication upon discharge is Gabapentin 100mg TID. Discharge Exam - Head Exam Head Exam: ATRAUMATIC, NORMAL INSPECTION - Eye Exam Eye Exam: EOMI, Normal appearance, PERRL Pupil Exam: NORMAL ACCOMODATION - ENT Exam ENT Exam: Mucous Membranes Moist - Respiratory Exam Respiratory Exam: Clear to PA & Lateral. absent: Accessory Muscle Use, Chest Wall Tenderness, Rales, Rhonchi, Wheezes - Cardiovascular Exam Cardiovascular Exam: RRR, +S1, +S2 - GI/Abdominal Exam GI & Abdominal Exam: Normal Bowel Sounds. absent: Firm, Guarding, Rebound, Rigid - Extremities Exam Extremities exam: normal capillary refill, normal inspection, pedal pulses present - Neurological Exam Neurological exam: Alert, CN II-XII Intact, Normal Gait, Oriented x3 - Psychiatric Exam Psychiatric exam: Normal Affect, Normal Mood - Skin Skin Exam: Dry, Intact, Normal Color, Warm Discharge Plan - Discharge Medications Prescriptions: Gabapentin [Neurontin] 100 mg PO Q8 #42 cap - Follow Up Plan Condition: FAIR Disposition: HOME/ ROUTINE Instructions: Preventing Falls in the Older Adult, Diabetic Neuropathy (DC) Additional Instructions: - Please follow up with a Primary Care Doctor (Dr. Duarte) within 3-4 days of discharge. - You are being discharged on a new medication: - Gabapentin 100mg tablet three times a day - Please resume your home medications as prescribed. Since you are already on Naproxen at home, do not take Motrin too because combining the medication has risk of stomach bleeding. You can also get Naproxen over the counter at your pharmacy. - Please return to the nearest emergency department if your symptoms worsen or reoccur. Referrals: Justen Duarte MD [Primary Care Provider] -
--- NOTE | 2018-12-31 09:25 | US ---
PROCEDURE: Right lower extremity venous US HISTORY: Leg pain and swelling. Evaluate for DVT. PHYSICIAN(S): Yoan Varela M.D. TECHNIQUE: Duplex sonography and color-flow Doppler with graded compression were used to evaluate the deep venous system of the right lower extremity. FINDINGS: The visualized deep venous system of the right lower extremity is sonographically normal and compressible. Normal waveforms and augmentation are seen. There is no sonographic evidence for deep venous thrombosis in the visualized segments of the right lower extremity. IMPRESSION: 1. No sonographic evidence for deep venous thrombosis in the visualized segments of the right lower extremity.
== END 2018-12-30 15:44 | disposition home or self-care (01) ==
LOC: ED 15:52 → ERH 20:31 → 3RSO 22:05
PROVIDERS: ADMIT Internal Medicine; ATTEND Internal Medicine
DX: E10.40 Type 1 diabetes mellitus with diabetic neuropathy, unspecified (principal); I10 Essential (primary) hypertension; I25.10 Atherosclerotic heart disease of native coronary artery without angina pectoris; E78.5 Hyperlipidemia, unspecified; J44.9 Chronic obstructive pulmonary disease, unspecified; I25.2 Old myocardial infarction; Z86.718 Personal history of other venous thrombosis and embolism; Z95.5 Presence of coronary angioplasty implant and graft
CPT/HCPCS: 36415; 73502; 73610; 80053; 82306; 82607; 82948; 83735; 84100; 84439; 84443; 84466; 85025; 93971; 96374; 97161; 97530; 99285; G0378; G8978; G8979; J1200; J1885; J7030

== ENCOUNTER 2019-01-02 13:36 | Outpatient (CLI) | payer MEDICARE, MEDICAID | END 2019-01-02 13:37 | disposition home or self-care (01) | LOC: RAD 13:36 | DX: Z12.31 Encounter for screening mammogram for malignant neoplasm of breast (principal) ==